=== PATIENT | female | born 1950 | race Caucasian/White ===

== ENCOUNTER 2016-08-30 10:22 | Outpatient (CLI) ==
[2014-08-18 18:42] VITALS: BMI 24.4
[2016-08-30 13:42] LABS: CHOL/HDL RATIO 6.2 (4.5-5.5)
== END 2016-08-30 10:23 | disposition home or self-care (01) ==
LOC: LAB 10:22
PROVIDERS: ATTEND General Practice
DX: E16.1 Other hypoglycemia (principal); E55.9 Vitamin D deficiency, unspecified; E78.5 Hyperlipidemia, unspecified
CPT/HCPCS: 36415; 80061; 82306

== ENCOUNTER 2016-11-29 10:10 | Outpatient (CLI) ==
[2014-08-18 18:42] VITALS: BMI 24.4
[2016-11-29 12:57] LABS: BASOPHILS % (AUTO) 0.3 % (0.0-3.0); EOSINOPHILS # (AUTO) 0.1 K/ul (0.0-0.7); HEMATOCRIT 42.1 % (37.0-47.0); HEMOGLOBIN 14.7 g/dl (12.0-16.0); IMMATURE GRANULOCYTE % (AUTO) 0.4 % (0.0-5.0); LYMPHOCYTES # (AUTO) 2.2 K/uL (0.60-3.4); LYMPHOCYTES % (AUTO) 32.8 (10.0-50.0); MEAN CORPUSCULAR HEMOGLOBIN 31.2 pg (27.0-31.0); MEAN CORPUSCULAR HGB CONC 34.9 (31.8-35.4); MEAN CORPUSCULAR VOLUME 89.4 fl (81.0-99.0); MONOCYTES # (AUTO) 0.5 K/uL (0.4-2.0); NEUTROPHILS # (AUTO) 3.9 K/ul (2.0-6.9); NEUTROPHILS % (AUTO) 58.5; PLATELET COUNT 305 10^3/uL (140-440); RED BLOOD COUNT 4.71 10^6/ul (4.20-5.40); WHITE BLOOD COUNT 6.71 K/ul (4.6-10.2)
[2016-11-29 13:00] LABS: BILIRUBIN,URINE Negative (NEGATIVE); KETONES,URINE Negative (NEGATIVE); LEUKOCYTE ESTERASE ,URINE 1+ (NEGATIVE); NITRITE,URINE Negative (NEGATIVE); PROTEIN,URINE Negative (NEGATIVE); URINE, BLOOD Negative (NEGATIVE)
[2016-11-29 13:09] LABS: ADD URINE MICROSCOPIC YES
[2016-11-29 13:44] LABS: ALBUMIN/GLOBULIN RATIO 1.21; ANION GAP 13.6; BILIRUBIN,TOTAL 0.51 mg/dL (0.00-1.20); BUN/CREATININE RATIO 14.86; CALCIUM 9.5 mg/dL (8.2-10.2); CHOL/HDL RATIO 5.9 (4.5-5.5); CREATININE 0.74 mg/dL (0.60-1.30); POTASSIUM 3.6 mmol/L (3.5-5.10); TOTAL PROTEIN 7.3 g/dL (5.8-8.1)
== END 2016-11-29 10:11 | disposition home or self-care (01) ==
LOC: LAB 10:10
PROVIDERS: ATTEND General Practice
DX: E78.5 Hyperlipidemia, unspecified (principal); I10 Essential (primary) hypertension; E55.9 Vitamin D deficiency, unspecified; E16.1 Other hypoglycemia; M54.5 Low back pain; Z79.899 Other long term (current) drug therapy
CPT/HCPCS: 36415; 80053; 80061; 81001; 82306; 83036; 85025

== ENCOUNTER 2017-07-17 13:18 | Outpatient (CLI) ==
[2014-08-18 18:42] VITALS: BMI 24.4
[2017-07-17 13:43] LABS: BASOPHILS % (AUTO) 0.3 % (0.0-3.0); EOSINOPHILS # (AUTO) 0.1 K/ul (0.0-0.7); HEMATOCRIT 42.3 % (37.0-47.0); HEMOGLOBIN 14.8 g/dl (12.0-16.0); IMMATURE GRANULOCYTE % (AUTO) 0.3 % (0.0-5.0); LYMPHOCYTES # (AUTO) 1.8 K/uL (0.60-3.4); LYMPHOCYTES % (AUTO) 29.8 (10.0-50.0); MEAN CORPUSCULAR HEMOGLOBIN 31.2 pg (27.0-31.0); MEAN CORPUSCULAR VOLUME 89.1 fl (81.0-99.0); MONOCYTES # (AUTO) 0.4 K/uL (0.4-2.0); MONOCYTES % (AUTO) 6.5 (0-10); NEUTROPHILS # (AUTO) 3.8 K/ul (2.0-6.9); NEUTROPHILS % (AUTO) 62.1; PLATELET COUNT 285 10^3/uL (140-440); RED BLOOD COUNT 4.75 10^6/ul (4.20-5.40); WHITE BLOOD COUNT 6.11 K/ul (4.6-10.2)
[2017-07-17 13:49] LABS: BILIRUBIN,URINE Negative (NEGATIVE); KETONES,URINE Negative (NEGATIVE); LEUKOCYTE ESTERASE ,URINE 2+ (NEGATIVE); NITRITE,URINE Negative (NEGATIVE); PROTEIN,URINE Negative (NEGATIVE); URINE, BLOOD Trace-intact (NEGATIVE)
[2017-07-17 14:08] LABS: ADD URINE MICROSCOPIC YES
[2017-07-17 14:13] LABS: BACTERIA,URINE TRACE (NOT PRESENT)
[2017-07-17 14:35] LABS: ALBUMIN 3.9 g/dL (3.4-5.0); ALBUMIN/GLOBULIN RATIO 1.11; ANION GAP 14.7; BILIRUBIN,TOTAL 0.43 mg/dL (0.00-1.20); BUN/CREATININE RATIO 17.33; CALCIUM 9.9 mg/dL (8.2-10.2); CHOL/HDL RATIO 5.8 (4.5-5.5); CREATININE 0.75 mg/dL (0.60-1.30); POTASSIUM 3.7 mmol/L (3.5-5.10); TOTAL PROTEIN 7.4 g/dL (5.8-8.1)
== END 2017-07-17 13:19 | disposition home or self-care (01) ==
LOC: LAB 13:18
PROVIDERS: ATTEND General Practice
DX: E78.5 Hyperlipidemia, unspecified (principal); I10 Essential (primary) hypertension; M54.5 Low back pain; G89.29 Other chronic pain; M96.1 Postlaminectomy syndrome, not elsewhere classified; E55.9 Vitamin D deficiency, unspecified; M81.0 Age-related osteoporosis without current pathological fracture; E16.1 Other hypoglycemia; G47.00 Insomnia, unspecified; Z72.0 Tobacco use; Z79.899 Other long term (current) drug therapy
CPT/HCPCS: 36415; 80053; 80061; 81001; 82306; 83036; 84443; 85025; 87086

== ENCOUNTER 2017-08-23 09:31 | Outpatient (CLI) ==
[2014-08-18 18:42] VITALS: BMI 24.4
--- NOTE | 2017-08-23 10:14 | CT ---
EXAM: CT cervical spine. HISTORY: Neck pain. TECHNIQUE: CT cervical spine without contrast. Detailed axial sections. Coronal and sagittal re-fo rmations. COMPARISON: None FINDINGS: Stabilization hardware of the anterior cervical spine is present which appears to extend from C2 thro ugh C7. There appears to be loss of height at C3 with an intervening disc spacer between C3 and C4. Hardware appears intact without gross fracture. There is no spondylolisthes. Bones appear relative ly demineralized. No acute fracture is obvious. Partial decompressive laminectomy has occurred. Fa cet joints are covered. No scoliosis. Lateral masses of C1 and C2 are normally aligned and the odo ntoid process is intact. No definite significant central canal stenosis. Neural foraminal narrowing bilaterally at C3/C4 is moderate. No paraspinal fluid collection is seen. IMPRESSION: Extensive postop changes of the cervical spine as described which can be reviewed by the patient's surgeon for appropriateness. There is no acute fracture or subluxation. No significant c entral canal stenosis is suggested. Some loss of height at C2. Probable moderate bilateral neural f oraminal narrowing at C3/C4.
== END 2017-08-23 09:32 | disposition home or self-care (01) ==
LOC: RAD 09:31
PROVIDERS: ATTEND Orthopaedic Surgery Orthopaedic Surgery of the Spine
DX: M54.2 Cervicalgia (principal)

== ENCOUNTER 2018-03-12 09:50 | Outpatient (CLI) ==
[2014-08-18 18:42] VITALS: BMI 24.4
== END 2018-03-12 09:51 ==
LOC: FCC-LAB 09:50 → LAB 09:51
PROVIDERS: ATTEND General Practice
DX: E78.5 Hyperlipidemia, unspecified (principal); I10 Essential (primary) hypertension; E55.9 Vitamin D deficiency, unspecified; M81.0 Age-related osteoporosis without current pathological fracture; G47.00 Insomnia, unspecified; K21.9 Gastro-esophageal reflux disease without esophagitis; Z79.899 Other long term (current) drug therapy
CPT/HCPCS: 36415; 80053; 80061; 81001; 85025

== ENCOUNTER 2018-03-13 10:23 | Outpatient (CLI) ==
[2014-08-18 18:42] VITALS: BMI 24.4
--- NOTE | 2018-03-13 11:53 | CT ---
EXAM: CT of the abdomen pelvis without contrast History: Left lower quadrant abdominal pain. Comparison: Abdominal ultrasound 10/22/2015 Technique: Multiplanar CT images through the abdomen pelvis were obtained without the administration of IV contrast Findings: Lung bases are free of consolidation. No acute osseous abnormalities. Right hip arthropla sty hardware. Postsurgical changes of the lumbar spine and bilateral sacroiliac joints. 3.9 cm inci dental lipoma of the left lateral abdominal wall musculature. Status post cholecystectomy. No focal liver or splenic lesions. No peripancreatic inflammation. At herosclerotic vascular calcifications. Adrenal glands are unremarkable. No renal stones and no hydr onephrosis. Evaluation of the renal parenchyma is limited due to the lack of contrast administration . The 1.4 cm hypoattenuating lesion within the superior pole of the left kidney and the 1.1 cm hypoa ttenuating lesion within the midpole of the left kidney. 1.1 cm hypoattenuating lesion within the bryson perior pole of the right kidney. No dilated loops of bowel. Moderate colonic stool. Colonic divert iculosis. Bladder is not well distended. No focal bladder wall thickening. No perirectal inflammat ion. No free air and no ascites. No jose inflammatory stranding. The appendix is not seen. Impression: 1. No acute intra-abdominal or pelvic process. 2. Indeterminate bilateral renal cortical lesions. Recommend further evaluation with renal ultrasou nd. 3. Colonic diverticulosis.
== END 2018-03-13 10:24 | disposition home or self-care (01) ==
LOC: RAD 10:23
PROVIDERS: ATTEND General Practice
DX: R10.32 Left lower quadrant pain (principal)

== ENCOUNTER 2018-03-20 08:16 | Outpatient (CLI) | payer OTHER ==
[2014-08-18 18:42] VITALS: BMI 24.4
--- NOTE | 2018-03-20 09:03 | US ---
EXAM: Renal ultrasound. History: Renal masses. Comparison: CT abdomen pelvis 03/13/2018 Technique: Multiple sonographic images through the kidneys were obtained. Color duplex Doppler was used to interrogate vascular flow. Findings: The right kidney measures 10.7 cm in long length demonstrating normal cortical echogenicity without e vidence for hydronephrosis or shadowing calculus. 1.2 cm anechoic simple cyst within the superior po le. The left kidney measures 9.8 cm in long length demonstrating normal cortical echogenicity without zaira dence for hydronephrosis or shadowing calculus. 1.3 cm anechoic cyst within the superior pole and 1. 4 cm anechoic cyst within the superior pole. The bladder was not well distended. Impression: 1. No hydronephrosis. 2. Simple bilateral renal cysts
== END 2018-03-20 08:17 | disposition home or self-care (01) ==
LOC: RAD 08:16
PROVIDERS: ATTEND General Practice
DX: R93.8 Abnormal findings on diagnostic imaging of other specified body structures (principal); N28.9 Disorder of kidney and ureter, unspecified

== ENCOUNTER 2018-12-13 15:24 | Inpatient (IN) ==
[2018-12-13 15:29] VITALS: BMI 25.2
[2018-12-13] MEDS ORDERED: PHENERGAN 25 MG/ML VIAL IM STA (15:56)
[2018-12-13] MEDS ORDERED: PHENERGAN 25 MG/ML VIAL 25 MG in SODIUM CHLORIDE 50 ML IV STA (16:12)
[2018-12-13] MEDS ORDERED: PHENERGAN 25 MG/ML VIAL ONE (16:14)
--- NOTE | 2018-12-13 18:02 | CT ---
EXAM: CT of the abdomen and pelvis without contrast. HISTORY: Pain. Positive urinary source. PROCEDURE: Contiguous axial CT images of the abdomen and pelvis without contrast with coronal and sa gittal reformats. FINDINGS: There is minimal left basilar atelectasis. The liver is normal in appearance. The gallbla dder is surgically absent. The pancreas, spleen and adrenal glands are normal in appearance. There are fluid density cysts in both kidneys. No nephrolithiasis or hydronephrosis. The ureters are inco mpletely visualized. The abdominal aorta is within normal limits in diameter. There are atheroscler otic calcifications in the major arteries of the abdomen and pelvis. The appendix is not visualized. There is fecal stasis in the ascending and proximal transverse colon which measures up to 4.9 cm in diameter. There is a moderate amount of air in the colon. No bowel obstruction. There is divertic ulosis of the colon with no evidence of diverticulitis. No free fluid or free air in the abdomen or pelvis. The bladder is decompressed which limits the evaluation. The uterus is surgically absent. There is a right hip arthroplasty and surgical hardware in the pelvis and spine with associated artif act which limits the exam. There are degenerative changes in the spine. There is a dorsal column st imulator. There is a hernia in the left lateral abdominal wall measuring 3.3 x 3.7 cm containing onl y fat. Impression: Decompressed bladder which limits the evaluation. Bladder wall thickening/cystitis canno t be excluded. Recommend correlation with urinary analysis. No hydronephrosis. The ureters are incompletely visualized. Simple bilateral renal cysts. Fecal stasis in the colon as described consistent with constipation. Abdominal wall hernia as described Cholecystectomy. Hysterectomy.
[2018-12-13] MEDS ORDERED: ROCEPHIN 1 GM in SODIUM CHLORIDE 50 ML IV STA (18:11)
--- NOTE | 2018-12-13 18:13 | ED.PDOC ---
General ED Provider: Dr. LOURDES EPSTEIN Chief Complaint: Urinary Problem Stated Complaint: URNARY SYMP, FLANK PAIN, FEVER , BACK PAIN Time Seen by Physician: 15:30 Mode of Arrival: Walk-In Information Source: Patient Exam Limitations: No limitations Primary Care Provider: MELVIN JESSICANEW [facility] Nursing and Triage Documentation Reviewed and Agree: Yes Does patient meet sepsis criteria?: No System Inflammatory Response Syndrome: Not Applicable Sepsis Protocol: For patient's 13 years and over: Temp is 96.8 and below OR 101 and greater Pulse >90 BPM Resp >20/minute Acutely Altered Mental Status Are patient's symptoms suggestive of a new infection, such as: -Pneumonia -Skin, Soft Tissue -Endocarditis -UTI -Bone, Joint Infection -Implantable Device -Acute Abdominal Infection -Wound Infection -Meningitis -Blood Stream Catheter Infection -Unknown Complaint Exam - Complaint/Exam Patient Complains of: Reports: Pain, Dysuria Onset/Duration: 1 DAY Symptoms Are: Still present Timing: Constant Episodes of Voiding Over Last 12 Hours: 4 Initial Severity: Moderate Current Severity: Moderate Location of Pain: Reports: Right, Flank, Suprapubic Character: Reports: Constant pressure, Cramping Aggravating: Reports: Urination Alleviating: Reports: None Associated Signs and Symptoms: Reports: Back pain, Fever, Dysuria, Nausea. Denies: Diaphoresis, Hematuria, Constipation, Blood in stool, Rectal pain, Appetite change, Vomiting, Decreased urine output, Increased urine frequency, Increased thirst, Decreased activity, Lethargy, Abdominal Pain, Bubble bath use , Vaginal bleeding, Vaginal discharge, Genital swelling, Genital blisters, Retained foreign body Ectopic Risk Factors: Reports: None Ovarian Torsion Risk Factors: Reports: None Surgical Obstruction Risk Factors: Reports: None RH Status: Unknown Related Surgical History: Reports: None Differential Diagnoses: UTI Review of Systems - Review Of Systems Constitutional: Reports: Fever, Malaise, Weakness, Loss of appetite Eyes: Reports: No symptoms Ears, Nose, Mouth, Throat: Reports: No symptoms Respiratory: Reports: No symptoms Cardiac: Reports: No symptoms GI: Reports: Abdomen distended : Reports: Dysuria, Flank pain Musculoskeletal: Reports: Back pain Skin: Reports: No symptoms Neurological: Reports: No symptoms Endocrine: Reports: No symptoms Hematologic/Lymphatic: Reports: No symptoms All Other Systems: Reviewed and Negative Past Medical History - Past Medical History Previously Healthy: Yes Endocrine: Reports: None Cardiovascular: Reports: Hypertension Respiratory: Reports: None Hematological: Reports: None Gastrointestinal: Reports: GERD Genitourinary: Reports: None Neuro/Psych: Reports: None Musculoskeletal: Reports: None Cancer: Reports: None Last Menstrual Period: N/A - Surgical History General Surgical History: Reports: None - Family History Family History: Reports: None - Social History Smoking Status: Current every day smoker Hx Substance Use: No Alcohol Screening: None Physical Exam - Physical Exam Appearance: Ill-appearing Ill-appearing: Mild Pain Distress: Mild Eyes: NAM, EOMI, Conjunctiva clear ENT: Ears normal, Nose normal, Oropharynx normal Respiratory: Airway patent, Breath sounds clear, Breath sounds equal, Respirations nonlabored Cardiovascular: RRR, Pulses normal, No rub, No murmur GI/: Soft, Nontender, No masses, Bowel sounds normal, No Organomegaly Musculoskeletal: Normal strength, ROM intact, No edema, No calf tenderness Skin: Warm, Dry, Normal color Neurological: Sensation intact, Motor intact, Reflexes intact, Cranial nerves intact, Alert, Oriented Psychiatric: Affect appropriate, Mood appropriate Interpretation - Radiology Interpretation Radiology Interpretation By: Radiologist Radiology Results: Positive (CYSTITIS) Physician Notification - Case Discussed Physician Notified: PMD Time of Notification: 18:13 Critical Care Note - Critical Care Note Total Time (mins): 0 Course - Course Hematology/Chemistry: 12/13/18 16:00 12/13/18 16:00 Orders, Labs, Meds: Lab Review 12/13/18 12/13/18 12/13/18 15:50 16:00 16:00 WBC 14.82 H RBC 4.17 L Hgb 13.2 Hct 37.3 MCV 89.4 MCH 31.7 H MCHC 35.4 RDW Coeff of Wendi 12.9 Plt Count 274 Immature Gran % (Auto) 0.6 Neut % (Auto) 93.0 Lymph % (Auto) 4.3 L [place] % (Auto) 2.0 Eos % (Auto) 0.0 Baso % (Auto) 0.1 Immature Gran # (Auto) 0.1 Neut # (Auto) 13.8 H Lymph # (Auto) 0.6 [place] # (Auto) 0.3 L Eos # (Auto) 0.0 Baso # (Auto) 0.0 Sodium 130.8 L Potassium 3.46 L Chloride 96.6 L Carbon Dioxide 25.8 Anion Gap 11.86 BUN 13.2 Creatinine 0.83 Estimated GFR (MDRD) 69.00 BUN/Creatinine Ratio 15.90 Glucose 99.1 Lactic Acid Calcium 8.94 Total Bilirubin 0.80 AST 181.8 H ALT 78.0 H Alkaline Phosphatase 48.4 L Total Protein 6.44 Albumin 4.30 Globulin 2.14 Albumin/Globulin Ratio 2.00 Amylase 53.1 Lipase 19.0 L Urine Color [place] Urine Clarity Clear Urine pH 5.0 Ur Specific [place] 1.015 Urine Protein 3+ Urine Glucose (UA) 1+ Urine Ketones 1+ Urine Blood 2+ Urine Nitrite Positive Urine Bilirubin 2+ Urine Urobilinogen 4.0 Ur Leukocyte Esterase 3+ Urine Microscopic RBC 5-10 Urine Microscopic WBC 50-100 Ur Squamous Epith Cells Not present Urine Bacteria 1+ 12/13/18 16:00 WBC RBC Hgb Hct MCV MCH MCHC RDW Coeff of Wendi Plt Count Immature Gran % (Auto) Neut % (Auto) Lymph % (Auto) [place] % (Auto) Eos % (Auto) Baso % (Auto) Immature Gran # (Auto) Neut # (Auto) Lymph # (Auto) [place] # (Auto) Eos # (Auto) Baso # (Auto) Sodium Potassium Chloride Carbon Dioxide Anion Gap BUN Creatinine Estimated GFR (MDRD) BUN/Creatinine Ratio Glucose Lactic Acid 1.52 Calcium Total Bilirubin AST ALT Alkaline Phosphatase Total Protein Albumin Globulin Albumin/Globulin Ratio Amylase Lipase Urine Color Urine Clarity Urine pH Ur Specific [place] Urine Protein Urine Glucose (UA) Urine Ketones Urine Blood Urine Nitrite Urine Bilirubin Urine Urobilinogen Ur Leukocyte Esterase Urine Microscopic RBC Urine Microscopic WBC Ur Squamous Epith Cells Urine Bacteria Orders Category Date Time Status EKG-(ED ONLY) Stat CARDIO 12/13/18 15:34 Completed NPO REMINDER: IMAGING ONCE CARE 12/13/18 17:02 Active ABG Stat LAB 12/13/18 15:34 Ordered AMYLASE Stat LAB 12/13/18 16:00 Completed BLOOD CULTURE Stat LAB 12/13/18 16:33 Received CBC W/ AUTO DIFF Stat LAB 12/13/18 16:00 Completed COMPREHENSIVE METABOLIC PANEL Stat LAB 12/13/18 16:00 Completed LACTIC ACID Stat LAB 12/13/18 16:00 Completed LIPASE Stat LAB 12/13/18 16:00 Completed PROCALCITONIN Stat LAB 12/13/18 16:00 Received URINALYSIS C & S IF INDICATED Stat LAB 12/13/18 15:50 Completed URINE CULTURE Stat LAB 12/13/18 05:50 Received Ceftriaxone Sodium [Rocephin] 1 gm MEDS 12/13/18 18:11 Ordered 0.9 % Sodium Chloride [Sodium Chloride] 50 ml IV ONCE Promethazine HCl [Phenergan 25 mg/ml Vial] MEDS 12/13/18 16:14 Discontinued 25 mg .ROUTE .STK-MED ONE Promethazine HCl [Phenergan 25 mg/ml Vial] 25 mg MEDS 12/13/18 16:12 Discontinued 0.9 % Sodium Chloride [Sodium Chloride] [address] ABDOMEN/PELVIS WO CONTRAST Stat RADS 12/13/18 17:01 Completed Medications Discontinued Medications Generic Name Dose Route Start Last Admin Trade Name Freq PRN Reason Stop Dose Admin Promethazine HCl 25 mg/ Sodium 51 mls @ 75 mls/hr 12/13/18 16:12 12/13/18 16: 23 Chloride IV 12/13/18 16:52 75 mls/hr ONCE STA Administration Vital Signs: Temp Pulse Resp BP Pulse Ox 12/13/18 15:25 101 F H 110 H 20 92/49 L 93 L Departure - Departure Time of Disposition: 18:14 (PT REFUSED CONTRAST STATED 207EARS AGO HAD ALLERGY TO IV DYE ) Disposition: ADMITTED INPATIENT Discharge Problem: Urinary tract infectious disease Instructions: Urinary Tract Infection in Women (ED) Condition: Good Pt referred to PMD for follow-up: Yes IPMP verified?: No Additional Instructions: Please call your Family Physician as soon as possible to schedule a follow-up appointment. Allergies/Adverse Reactions: Allergies ciprofloxacin Adverse Reaction (Verified 12/13/18 16:03) Iodinated Contrast- Oral and IV Dye Adverse Reaction (Unverified 12/13/18 17:39) NSAIDS (Non-Steroidal Anti-Inflamma Adverse Reaction (Verified 12/13/18 16:03) olmesartan Adverse Reaction (Verified 12/13/18 16:03) prochlorperazine Adverse Reaction (Verified 12/13/18 16:03) sulfamethoxazole [From Bactrim] Adverse Reaction (Verified 12/13/18 16:03) trimethoprim [From Bactrim] Adverse Reaction (Verified 12/13/18 16:03) Home Medications: Ambulatory Orders Alprazolam 0.5 mg PO DAILY PRN 08/18/14 Fluticasone Propionate [Flonase] 2 spray NS DAILY PRN 08/18/14 Olmesartan/Hydrochlorothiazide [Benicar Hct 20-12.5 mg Tablet] 1 each PO DAILY 08/18/14 Carisoprodol [Soma] 350 mg PO TID PRN 10/21/15 Oxycodone HCl 10 mg PO 6XD tab-cap 12/10/15 Vitamin B-100 Complex [Balanced B-100] 1 tab PO DAILY 12/13/18
[2018-12-13] MEDS ORDERED: ROCEPHIN ONE (18:23)
[2018-12-13] MEDS ORDERED: NON-FORMULARY MEDICATION (Zolpidem Tartrate [Ambien] 10 MG) PO SCH ×2 (18:45→22:00)
[2018-12-13] MEDS ORDERED: SODIUM CHLORIDE 1,000 ML IV SCH (19:00)
[2018-12-13] MEDS ORDERED: NON-FORMULARY MEDICATION (Oxycodone Hcl [Oxycodone Hcl] 10 MG) PO SCH (21:00)
[2018-12-13] MEDS ORDERED: PHENERGAN SUPP RC PRN (21:21)
[2018-12-13] MEDS ORDERED: GENTAMICIN SULFATE ONE (21:27)
[2018-12-13] MEDS: DEXTROSE 5%-LR IV SOLUTION 1,000 ML IV SCH (21:37)
[2018-12-13] MEDS: GENTAMICIN SULFATE 80 MG in SODIUM CHLORIDE 50 ML IV SCH ×2 (21:38→22:06)
[2018-12-13] MEDS ORDERED: OXYCODONE ONE (21:49)
[2018-12-13] MEDS ORDERED: AMBIEN ONE (21:49)
[2018-12-13] MEDS ORDERED: OXYCODONE PO STA (22:01)
[2018-12-13] MEDS: AMBIEN PO SCH (22:03)
[2018-12-14] MEDS: OXYCODONE PO SCH ×6 (05:00→21:41)
[2018-12-14] MEDS: XANAX PO PRN ×2 (06:19→20:55)
[2018-12-14] MEDS: HYDROCHLOROTHIAZIDE PO SCH (08:10)
[2018-12-14] MEDS: BENICAR PO SCH (08:10)
[2018-12-14] MEDS ORDERED: OLMESARTAN PO SCH ×2 (09:00)
[2018-12-14] MEDS ORDERED: HYDROCHLOROTHIAZIDE PO SCH ×2 (09:00)
[2018-12-14] MEDS ORDERED: [UNRECOGNIZED DRUG - OTHER] PO SCH ×2 (09:00)
[2018-12-14] MEDS: DEXTROSE 5%-LR IV SOLUTION 1,000 ML IV SCH (09:26)
[2018-12-14] MEDS: GENTAMICIN SULFATE 80 MG in SODIUM CHLORIDE 50 ML IV SCH ×2 (09:26→20:55)
[2018-12-14] MEDS ORDERED: DEXTROSE 5%-LR IV SOLUTION 1,000 ML IV SCH (11:30)
[2018-12-14] MEDS: NICODERM 21 MG TD SCH (12:34)
[2018-12-14] MEDS: SOMA PO PRN (14:14)
--- NOTE | 2018-12-14 14:35 | HP ---
DATE OF SERVICE: 12/13/18 CHIEF COMPLAINT: Fever, nausea, pelvic pain, and burning with urination. HISTORY OF PRESENT ILLNESS: The patient is a 68-year-old patient who presented to the Emergency Department after one week of symptoms. The symptoms initially started approximately one week ago with just not feeling well. She had developed some fever, some chills, nausea, burning with urination and started a leftover prescription of Augmentin 875 mg once daily on Monday, Monday and Monday. On Monday she started feeling pretty good and then by Monday she started feeling worse again. On the chills, fever and nausea got worse and that is when she decided to present to the Emergency Department. On admission to the Emergency Department, her fever was 101, tachycardic at 110. Her white count was 14,000. She had hematuria with nitrites in her urine as well as leukocytes. While in the emergency department, urine cultures were obtained as well as blood cultures, labs and the patient was started on IV Rocephin, given IV nausea medicine and CT scan of the abdomen and pelvis was completed. The CT scan of the abdomen and pelvis revealed bladder wall thickening as well as cystitis could not be excluded. Due to the high fever, abnormal CT scan of the abdomen and pelvis and concerns for bacteremia, the patient was admitted for IV antibiotic therapy, IV fluids and monitoring. PAST PERSONAL HISTORY: The patient was diagnosed with rheumatoid arthritis and treated previously with Methotrexate. She also has a history of lumbar surgery, failed back surgery syndrome, hypertension,, headaches, migraine as well as bilateral hip pain and right total hip replacement. Also has a history of chronic neck pain persistent after surgery, fibromyalgia, questionable, insomnia on medication, gastroesophageal reflux disease, moderate dyslipidemia plus anxiety. FAMILY HISTORY: Positive for diabetes, heart attack, heart disease, spinal problems and cancer. SOCIAL HISTORY: The patient is and resides with her with grown children no longer at home. She smokes two packs of cigarettes a day although less now. She has smoked for years. Occasional alcoholic beverages. MEDICATIONS: (HOME) Flonase two sprays per nostril daily p.r.n. Alprazolam 0.5 mg daily p.r.n. Soma 350 mg tablet three times a day p.r.n. Oxycodone HCL 10 mg tablet six times a day p.r.n. Butalb/acetaminophen/caffeine 50/325/40 one tablet daily p.r.n. Ambien 10 mg nightly as needed for insomnia Olmesartan/HCTZ 20/12.5 mg tablet one daily for blood pressure Omeprazole 20 mg tablet daily p.r.n. reflux Vitamin D3 50,000 units once monthly Vitamin B complex one tablet daily ALLERGIES: CELEBREX, BIAXIN, COMPAZINE, LIPITOR, PRAVACHOL, BACTRIM, ACIFEX, IVP DYE, NONSTEROIDAL AND OTHER ANTIINFLAMMATORY MEDICATIONS, METHOTREXATE, NIASPAN, VYTOREN, CRESTOR, CYMBALTA, AND CIPROFLOXACIN REVIEW OF SYSTEMS: CONSTITUTIONAL: She did have chills as well as fever on admission. No significant fatigue reported. PARLIAMENTARY COUNSEL: She does have a history of headaches, migraine in nature; did not have any headache on admission. No reports of dizziness or ataxia. AUDITORY: No significant hearing loss. RESPIRATORY: The patient has a chronic cough most likely due to smoking. CARDIOVASCULAR: No reports of chest pain, palpitations or shortness of breath. No lower extremity edema. GASTROINTESTINAL: She did have nausea on admission. No reports of constipation, diarrhea or blood in the stool. GENITOURINARY: Positive for dysuria, pelvic pain. MUSCULOSKELETAL: She does have pain in her neck and lumbar area as well as hips. This is chronic in nature. ENDOCRINE: Negative. INTEGUMENT: No rash or pruritus. HEMATOLOGIC: Negative. PSYCHIATRIC: She does have history of insomnia plus anxiety. PHYSICAL EXAMINATION: GENERAL: The patient is a 64-year-old female admitted to the hospital due to urinary tract infection, rule out probable bacteremia. She has been experiencing symptoms for the last one week with related symptoms of nausea, fever and chills. The symptoms have progressed and gotten worse even after taking an antibiotic at home. VITAL SIGNS: On admission include a temperature of 101, pulse rate of 110, blood pressure of 92/49, respiratory rate of 20 and 02 sat of 93. This is on room air. Height 5', weight 129 lbs. HEAD: Unremarkable. Face symmetrical and equal with no facial weakness, no tenderness in the frontal or maxillary sinus areas to palpation and/or pressure. EYES: Pupils equal/reactive to light and 3 mn in size. Conjunctivae not pale. Sclerae not icteric. Extraocular movements are intact. EARS: External ears within normal limits. MOUTH: Dentures both upper and lower. THROAT: No inflammation, no tumors, no exudate. NECK: No masses. No bruit. No tenderness. The patient had surgeries to the neck involving C6 to C7 done in [place], [place]. CHEST: Symmetrical and equal with good expansion. No remarkable tenderness. LUNGS: Breath sounds are heard on both sides. No rales. No wheeze. HEART: Audible and regular with good tones. No murmurs. ABDOMEN: Flat, soft. She does have positive lower abdominal pelvic tenderness. Bowel sounds are active. No bruit. EXTERNAL GENITALIA: Pelvic and rectal not completed. LOWER EXTREMITIES: Essentially symmetrical and equal with no edema. Pedal pulses are present. UPPER EXTREMITIES: Symmetrical and equal. ASSESSMENT: 1. URINARY TRACT INFECTION WITH PROBABLE BACTEREMIA 2. FEVER 3. MILD DEHYDRATION 4. ELEVATED LIVER FUNCTION TEST 5. NAUSEA 6. FAILED BACK SURGERY SYNDROME, LUMBAR 7. DEGENERATIVE JOINT DISEASE 8. RIGHT TOTAL HIP REPLACEMENT 9. CHRONIC KNEE PAIN STATUS POST SURGERY 10. CHRONIC TOBACCO USE, TWO PACKS PER DAY PERSISTENT 11. HISTORY OF FIBROMYALGIA 12. HISTORY OF RHEUMATOID ARTHRITIS, SEEN BY [facility], DR. MARSHALL 13. HISTORY OF INSOMNIA ON AMBIEN 14. HISTORY OF GASTROESOPHAGEAL REFLUX DISEASE ON MEDICATION 15. ANXIETY PLAN: 1. Continue IV antibiotics and adjust accordingly with cultures. Currently the cultures are pending. We are awaiting results. 2. Change IV fluids to D5 1/2 NS with 20 mEq of potassium with MVI at 125 cc/ hr during waking hours only and stop at night. 3. We are going to order hepatitis panel due to elevated liver function test. 4. We will repeat a procalcitonin level today to followup the elevated procalcitonin level on admission. 5. We will resume home medications and follow vital signs including temperature. TIME SPENT: GREATER THAN 65 MINUTES MTDD
[2018-12-14] MEDS ORDERED: GENTAMICIN SULFATE ONE (20:16)
[2018-12-14] MEDS: AMBIEN PO SCH (21:41)
[2018-12-14] MEDS ORDERED: COLACE PO PRN (22:08)
[2018-12-15] MEDS ORDERED: INFUVITE ADULT IV ONE ×2 (05:22→17:26)
[2018-12-15] MEDS: INFUVITE ADULT 10 ML in D5%-1/2NS-KCL 20 MEQ/L IV SOL 1,000 ML IV SCH ×2 (05:32→17:30)
[2018-12-15] MEDS: OXYCODONE PO SCH ×6 (05:33→21:05)
[2018-12-15] MEDS: GENTAMICIN SULFATE 80 MG in SODIUM CHLORIDE 50 ML IV SCH ×2 (09:07→21:05)
[2018-12-15] MEDS: NICODERM 21 MG TD SCH (09:07)
[2018-12-15] MEDS: FLUTICASONE PROPIONATE NS PRN (09:08)
[2018-12-15] MEDS: HYDROCHLOROTHIAZIDE PO SCH (09:09)
[2018-12-15] MEDS: BENICAR PO SCH (09:09)
[2018-12-15] MEDS: XANAX PO PRN (11:30)
[2018-12-15] MEDS: SOMA PO PRN ×2 (11:35→17:47)
[2018-12-15] MEDS: AMBIEN PO SCH (21:05)
[2018-12-16] MEDS ORDERED: INFUVITE ADULT IV ONE ×2 (04:43→14:46)
[2018-12-16] MEDS: INFUVITE ADULT 10 ML in D5%-1/2NS-KCL 20 MEQ/L IV SOL 1,000 ML IV SCH ×3 (05:45→15:06)
[2018-12-16] MEDS: OXYCODONE PO SCH ×6 (05:45→21:01)
[2018-12-16] MEDS: BENICAR PO SCH (08:01)
[2018-12-16] MEDS: SOMA PO PRN (08:01)
[2018-12-16] MEDS: HYDROCHLOROTHIAZIDE PO SCH (08:01)
[2018-12-16] MEDS: NICODERM 21 MG TD SCH (08:07)
[2018-12-16] MEDS ORDERED: FIORICET PO STA (08:15)
[2018-12-16] MEDS: GENTAMICIN SULFATE 80 MG in SODIUM CHLORIDE 50 ML IV SCH (08:37)
[2018-12-16] MEDS ORDERED: FIORICET PO PRN (13:37)
[2018-12-16] MEDS: XANAX PO PRN (14:06)
[2018-12-16] MEDS: AMBIEN PO SCH (21:01)
[2018-12-17] MEDS ORDERED: FIORICET PO STA ×2 (00:27→08:38)
[2018-12-17 04:33] VITALS: BP 130/69; TEMP 98.4
[2018-12-17] MEDS ORDERED: INFUVITE ADULT IV ONE (05:29)
[2018-12-17] MEDS: INFUVITE ADULT 10 ML in D5%-1/2NS-KCL 20 MEQ/L IV SOL 1,000 ML IV SCH ×2 (05:45→14:24)
[2018-12-17] MEDS: OXYCODONE PO SCH ×4 (05:45→14:27)
[2018-12-17] MEDS: BENICAR PO SCH (08:07)
[2018-12-17] MEDS: FLUTICASONE PROPIONATE NS PRN (08:07)
[2018-12-17] MEDS: SOMA PO PRN ×2 (08:07→14:27)
[2018-12-17] MEDS: HYDROCHLOROTHIAZIDE PO SCH (08:07)
[2018-12-17] MEDS: NICODERM 21 MG TD SCH (08:08)
[2018-12-17] MEDS ORDERED: GENTAMICIN SULFATE ONE (08:43)
[2018-12-17] MEDS ORDERED: MACROBID PO SCH (09:00)
[2018-12-17] MEDS ORDERED: GENTAMICIN SULFATE 80 MG in SODIUM CHLORIDE 50 ML IV SCH ×2 (09:00→15:00)
--- NOTE | 2018-12-17 09:51 | PCM.CONS ---
CONSULTING PROVIDER: Dr. ROSY MAR ATTENDING PROVIDER: Dr. MELVIN [facility] DATE OF SERVICE: 12/17/18 SUBJECTIVE: This 68 year old WHITE/ F was hospitalized 12/13/18. The patient is resting comfortably in bed. She had fever last night and is refusing to stay past 5 p.m. today. Will resume Gentamicin with two IV doses prior to 5 p.m. She has been eating well, no nausea or vomiting. REVIEW OF SYSTEMS: CONSTITUTIONAL: Fever. No night sweats. No fatigue, malaise, lethargy. No chills. HEENT: Eyes: No visual changes. No eye pain. No eye discharge. ENT: No runny nose. No epistaxis. No sinus pain. No odynophagia. No congestion. RESPIRATORY: No cough, no congestion. No hemoptysis. No shortness of breath. CARDIOVASCULAR: No angina symptoms. No CHF symptoms. No atypical chest pain for CAD. No palpitations. No orthopnea. GASTROINTESTINAL: No abdominal pain. No nausea or vomiting. No diarrhea or constipation. No hematemesis. No hematochezia. GENITOURINARY: No urgency. No frequency. No dysuria. No hematuria. No obstructive symptoms. No discharge. No pain. No significant abnormal bleeding. MUSCULOSKELETAL: No musculoskeletal pain; no joint swelling. NEUROLOGICAL: Awake, alert, oriented to time, place and person. No headache. No neck pain. No syncope. No seizures. No dizziness. PSYCHIATRIC: Not anxious. No depression. No suicidal thoughts. No homicidal thoughts. SKIN: No rash. No lesions. No wounds. ENDOCRINE: No unexplained weight loss. No weight gain. HEMATOLOGIC/LYMPHATIC: No anemia. No purpura. No petechiae. No prolonged or excessive bleeding. No palpable lymph nodes. PHYSICAL EXAMINATION: GENERAL: The patient is awake, alert and oriented, lying/sitting in bed in no distress. VITAL SIGNS: Temperature 98.4 F, Pulse 76, Respiratory Rate 16, BP 130/69, Pulse Ox 96% HEENT: Head normocephalic, atraumatic. Eyes: Extraocular muscles are intact. Pupils are equal, round and reactive to light and accommodation. Ears: No lesions. Nose appeared normal. Throat: No exudate or erythema. NECK: Supple. No JVD, no carotid bruit. No lymphadenopathy or thyromegaly. LUNGS: Diminished breath sounds. Clear to auscultation. Percussion note normal. Chest symmetrical. HEART: S1, S2, no S3. No murmurs. No cyanosis or clubbing. No ascites. Pulses: Dorsalis pedis and posterior tibial pulses +1 to +2 both sides. ABDOMEN: Soft. Non-tender. Bowel sounds active. No CVA tenderness. No mass felt. EXTREMITIES: No edema. Full range of motion of all extremities, equal. NEUROLOGIC: No focal deficit. Cranial nerves II through XII are grossly intact. No headache, no double vision or headache. SKIN: Warm and dry. Intact. Turgor-normal. LYMPHATIC: No palpable lymph nodes/no lymphedema. MUSCULOSKELETAL: Normal joints with no swelling. Muscle tone is normal. LAB REVIEW: 12/17/18 04:44 12/17/18 04:44 12/17/18 04:44: Sodium 130.0 L, Potassium 3.99, Chloride 95.8 L, Carbon Dioxide 28.0, Anion Gap 10.19, BUN 6.4 L, Creatinine 0.62, Estimated GFR (MDRD) 96.00, BUN/Creatinine Ratio 10.32, Glucose 102.5, Calcium 9.00, Total Bilirubin 0.40, AST 19.2, ALT 22.3, Alkaline Phosphatase 36.4 L, Total Protein 6.16 L, Albumin 3.77, Globulin 2.39, Albumin/Globulin Ratio 1.57 12/17/18 04:44: WBC 5.30, RBC 3.84 L, Hgb 11.9 L, Hct 34.4 L, MCV 89.6, MCH 31.0 , MCHC 34.6, RDW Coeff of Wendi 12.8, Plt Count 235, Immature Gran % (Auto) 0.2, Neut % (Auto) 66.8, Lymph % (Auto) 23.2, [place] % (Auto) 9.2, Eos % (Auto) 0.4, Baso % (Auto) 0.2, Immature Gran # (Auto) 0.0, Neut # (Auto) 3.5, Lymph # (Auto ) 1.2, [place] # (Auto) 0.5, Eos # (Auto) 0.0, Baso # (Auto) 0.0 12/16/18 08:42: Sodium 131.2 L, Potassium 4.05, Chloride 95.1 L, Carbon Dioxide 29.6, Anion Gap 10.55, BUN 6.6 L, Creatinine 0.65, Estimated GFR (MDRD) 91.00, BUN/Creatinine Ratio 10.15, Glucose 108.5 H, Calcium 9.12, Total Bilirubin 0.46 , AST 16.5, ALT 27.8, Alkaline Phosphatase 36.7 L, Total Protein 6.17 L, Albumin 3.62, Globulin 2.55, Albumin/Globulin Ratio 1.41 12/16/18 08:42: WBC 6.67, RBC 3.83 L, Hgb 12.1, Hct 35.1 L, MCV 91.6, MCH 31.6 H , MCHC 34.5, RDW Coeff of Wendi 13.1, Plt Count 271, Immature Gran % (Auto) 0.1, Neut % (Auto) 71.4, Lymph % (Auto) 19.3, [place] % (Auto) 8.2, Eos % (Auto) 0.7, Baso % (Auto) 0.3, Immature Gran # (Auto) 0.0, Neut # (Auto) 4.8, Lymph # (Auto ) 1.3, N[place] # (Auto) 0.6, Eos # (Auto) 0.1, Baso # (Auto) 0.0 ASSESSMENT: 1. URINARY TRACT INFECTION 2. MIGRAINE HEADACHES 3. POLYARTHRITIS RECOMMENDATIONS/PLAN: 1. Recommend the patient stay and again she refuses but agrees to stay until 5 p.m. 2. Macrobid 100 mg p.o. b.i.d. 3. Resume Gentamicin one dose now and another dose. 4. D/C IV fluids. 5. Fioricet, two this morning and q.6hr. Plan and coordination of the patient's care discussed in the presence of Senior Wind Turbine Technician and Nurse. CONDITION: Stable SCRIBED BY: ANJUM BAPTISTE, Director Of Enterprise Strategy scribed while in presence of service performed by Dr. Mar/Diane Toro APRN on 12/17/18 ([id number])
[2018-12-17] MEDS ORDERED: GENTAMICIN SULFATE 80 MG in SODIUM CHLORIDE 50 ML IV ONE ×4 (10:30)
[2018-12-17] MEDS ORDERED: FIORICET PO ONE (14:30)
--- NOTE | 2018-12-17 14:35 | CONS ---
DATE OF CONSULTATION: 12/15/18 REASON FOR CONSULTATION: Rising procalcitonin. REVIEW OF SYSTEMS: CONSTITUTIONAL: No night sweats. No fatigue, malaise, lethargy. No fever or chills. HEENT: Eyes: No visual changes. No eye pain. No eye discharge. ENT: No sinus drainage. No epistaxis. No sinus pain. No sore throat. No odynophagia. No ear pain. No congestion. RESPIRATORY: No cough, no congestion. No hemoptysis. No shortness of breath. CARDIOVASCULAR: No angina symptoms. No CHF symptoms. No atypical chest pain for CAD. No palpitations. No orthopnea. GASTROINTESTINAL: No abdominal pain. No nausea or vomiting. No diarrhea or constipation. No hematemesis. No hematochezia. GENITOURINARY: No urgency. No frequency. No dysuria. No hematuria. No obstructive symptoms. No discharge. No pain. No significant abnormal bleeding. MUSCULOSKELETAL: No musculoskeletal pain. No joint swelling. NEUROLOGICAL: No headache. No neck pain. No syncope. No seizures. No dizziness. PSYCHIATRIC: Not anxious. No depression. No suicidal thoughts. No homicidal thoughts. SKIN: No rash. No lesions. No wounds. ENDOCRINE: No unexplained weight loss. No weight gain. HEMATOLOGIC/LYMPHATIC: No anemia. No purpura. No petechiae. No prolonged or excessive bleeding. No palpable lymph nodes. MEDICATIONS: Xanax Flonase Soma Oxycodone Ambien Benicar Hydrochlorothiazide Omeprazole Vitamin D ALLERGIES: CIPROFLOXACIN, IODINATED DYE, NONSTEROIDAL ANTIINFLAMMATORY, BENICAR , SULFAMETHAXAZOLE, BACTRIM PAST MEDICAL HISTORY: Generalized osteoarthritis DJD spine Hypertension Anxiety syndrome PAST SURGICAL HISTORY: Right hip replacement, 2014 Breast biopsy times three Heart cath times two Cholecystectomy Hysterectomy Cervical surgery times three Lumbar surgery times 5 SOCIAL/PERSONAL/FAMILY HISTORY: The patient is nonsmoker. No alcohol abuse. She is and lives with . She does all activity of daily living. PHYSICAL EXAMINATION: GENERAL: The patient is oriented to time, place and person. Color looks good. VITAL SIGNS: Temperature 98.4, pulse 70, respiratory rate 18, blood pressure 137 /66, pulse ox 95% on room air. HEENT: Head normocephalic, atraumatic. Eyes: Extraocular muscles are intact. Pupils are equal, round and reactive to light and accommodation. Ears: No lesions. Nose appeared normal. Throat: No exudate or erythema. NECK: Supple. No JVD, no carotid bruit. No lymphadenopathy or thyromegaly. LUNGS: Decreased breath sounds but clear to auscultation. Percussion note normal. Chest symmetrical. HEART: S1, S2, no S3. No murmurs. No cyanosis or clubbing. No ascites. Pulses: Dorsalis pedis and posterior tibial pulses +1 to +2 bilaterally. ABDOMEN: Soft. Nontender. Bowel sounds active. No CVA tenderness. No mass felt. EXTREMITIES: No pedal edema. Full range of motion of all extremities, equal. NEUROLOGIC: Normal COMMERCIAL AGENT. No focal deficit. Cranial nerves II through XII are grossly intact. No headache, no double vision or headache. SKIN: Not dry. Intact. Turgor - normal. LYMPHATIC: No palpable lymph nodes/no lymphedema. MUSCULOSKELETAL: Normal joints with no swelling. Muscle tone is normal. Hemoglobin 11.7, hematocrit 34, WBC 9,300, normal differential. Creatinine 0.6, BUN 12, potassium 4. ASSESSMENT: 1. ACUTE URINARY TRACT INFECTION 2. SEPTICEMIA RECOMMENDATIONS: 1. Agree with the patient's present management with Gentamicin. 2. Awaiting blood cultures. 3. Stable with no evidence of septicemia. No leukcoytosis. Afebrile with improved appetite. Normal kidney functions. CONDITION: Stable MTDD
--- NOTE | 2018-12-17 14:42 | CONS ---
DATE OF SERVICE: 12/16/18 CONSULT FOLLOWUP SUBJECTIVE: 68-year-old white female was hospitalized with acute pyelonephritis, urinary tract infection. The patient is practically afebrile, feeling a lot better. She had a migraine headache, which responded to Fioricet. She is feeling better this morning. REVIEW OF SYSTEMS: CONSTITUTIONAL: No night sweats. No fatigue, malaise, lethargy. No fever or chills. HEENT: Eyes: No visual changes. No eye pain. No eye discharge. ENT: No runny nose. No epistaxis. No sinus pain. No sore throat. No odynophagia. No ear pain. No congestion. RESPIRATORY: No cough, no congestion. No hemoptysis. CARDIOVASCULAR: No angina symptoms. No CHF symptoms. No atypical chest pain for CAD. No palpitations. No shortness of breath. GASTROINTESTINAL: No abdominal pain. No nausea or vomiting. No diarrhea or constipation. No hematemesis. No hematochezia. GENITOURINARY: No urgency. No frequency. No dysuria. No hematuria. No obstructive symptoms. No discharge. No pain. No significant abnormal bleeding. MUSCULOSKELETAL: No musculoskeletal pain. No joint swelling. No arthritis. NEUROLOGICAL: No headache. No neck pain. No syncope. No seizures. No dizziness. PSYCHIATRIC: Not anxious. No depression. No suicidal thoughts. No homicidal thoughts. SKIN: No rash. No lesions. No wounds. ENDOCRINE: No unexplained weight loss. No weight gain. HEMATOLOGIC/LYMPHATIC: No anemia. No purpura. No petechiae. No prolonged or excessive bleeding. No palpable lymph nodes. PHYSICAL EXAMINATION: VITAL SIGNS: Temperature 99, pulse 85, respiratory rate 20, BP 132/73, pulse ox 94%. HEENT: Head normocephalic, atraumatic. Eyes: Extraocular muscles are intact. Pupils are equal, round and reactive to light and accommodation. Ears: No lesions. Nose appeared normal. Throat: No exudate or erythema. NECK: Supple. No JVD, no carotid bruit. No lymphadenopathy or thyromegaly. LUNGS: Decreased breath sounds but clear to auscultation. Percussion note normal. Chest symmetrical. HEART: S1, S2, no S3. No murmurs. No cyanosis or clubbing. No ascites. Pulses: Dorsalis pedis and posterior tibial pulses +1 to +2 bilaterally. ABDOMEN: Soft. Nontender. Bowel sounds active. No CVA tenderness. No mass felt. EXTREMITIES: No edema. Full range of motion of all extremities, equal. NEUROLOGIC: No focal deficit. Cranial nerves II through XII are grossly intact. No headache, no double vision or headache. SKIN: Not dry. Intact. Turgor - normal. LYMPHATIC: No palpable lymph nodes/no lymphedema. MUSCULOSKELETAL: Normal joints with no swelling. Muscle tone is normal. ASSESSMENT: 1. UTI BEING TREATED WITH GENTAMICIN, RESPONDING TO THE TREATMENT; CULTURES PENDING. 2. THE PATIENT IS A SMOKER, STRONGLY ADVISED TO QUIT SMOKING. RECOMMENDATIONS: 1. Will do CBC, CMP today and tomorrow. 2. Counseling done for smoking. CONDITION: Stable MTDD
--- NOTE | 2018-12-17 14:49 | CONS ---
BILLING The patient was seen on consultation from 12/15/18 - Level 5 Followup - 12/16/18 - intermediate Followup - 12/17/18 - intermediate MTDD
--- NOTE | 2018-12-18 13:31 | CONS ---
DATE OF SERVICE: 12/17/18 CONSULT FOLLOWUP SUBJECTIVE: The patient was seen and examined with the nurse practitioner. She seems to have improved clinically. She is eating better. She was running a low grade fever. PHYSICAL EXAMINATION: HEENT: Head normocephalic, atraumatic. Eyes: Extraocular muscles are intact. Pupils are equal, round and reactive to light and accommodation. Ears: No lesions. Nose appeared normal. Throat: No exudate or erythema. NECK: Supple. No JVD, no carotid bruit. No lymphadenopathy or thyromegaly. LUNGS: Clear to auscultation. Percussion note normal. Chest symmetrical. HEART: S1, S2, no S3. No murmurs. No cyanosis or clubbing. No ascites. Pulses: Dorsalis pedis and posterior tibial pulses +1 to +2 bilaterally. ABDOMEN: Soft. Nontender. Bowel sounds active. No CVA tenderness. No mass felt. EXTREMITIES: No edema. Full range of motion of all extremities, equal. NEUROLOGIC: No focal deficit. Cranial nerves II through XII are grossly intact. No headache, no double vision or headache. SKIN: Not dry. Intact. Turgor - normal. LYMPHATIC: No palpable lymph nodes/no lymphedema. MUSCULOSKELETAL: Normal joints with no swelling. Muscle tone is normal. PLAN: The patient's one dose of Gentamicin was missed yesterday by nursing staff. The patient's condition is stable. There is nothing more to add to this patient' s present management. I will sign out of the case. [facility]
--- NOTE | 2018-12-18 13:44 | DS ---
DATE OF SERVICE: 12/17/18 HISTORY OF PRESENT ILLNESS: Mrs. Graff is a pleasant 68 [address] patient of Dr. Nogueira who presented to the emergency department on the date of admission after one week of urinary symptoms. The symptoms initially started approximately one week ago with just not feeling well. She had developed some fever, chills, nausea, burning on urinary and started a left over prescription of Augmentin 875mg once daily on Monday, Monday and Monday. On Monday she started feeling pretty good and then by Monday she started feeling worse again. On the chills, fever and nausea got worse and that is when she decided to present to the emergency department. On admission to the emergency department her fever was 101, she was tachycardic at 110. Her WBC was elevated at 14,000. She had a hematuria with nitrates in her urine as well as leukocytes. While in the emergency department urine cultures were obtained as well as blood cultures, labs and the patient was started on IV Rocephin. She was given IV nausea medications and a CT scan of the abdomen and pelvis was obtained. The CT scan of the abdomen and pelvis revealed bladder wall thickening as well as cystitis can not be excluded. Due the high fever, abnormal CT scan of the abdomen and pelvis and concerns for bacteremia the patient was admitted for IV antibiotics, IV fluids and monitoring. She had remained in the hospital through the weekend on IV Rocephin and Gentamicin. The Gentamicin was not given last night. She did spike a fever through the night. Her vital signs records were reviewed and she did have 101 as well as 100.3 fever through the night. The Gentamicin was restarted and her fever has come down. Her repeat urinalysis was reviewed and she did have 3+ proteinuria, the nitrates were gone, leukocytes were negative. The blood cultures were negative and the urine culture was inconclusive due to the fact that she did start on an antibiotics prior to admission to the emergency department. It is recommended that she continue Gentamicin however the patient is very insistent that she be discharged to home on an oral antibiotic. She is agreeable to take another course of Gentamicin this afternoon at 3:00. Her appetite is good. Her intake and output has been good. Again, we do have reservation with sending the patient home but again she is very insistent. Her temperatures have been afebrile today. Pertinent labs as far as her WBC for WBC has come down to 5.30, hgb today 11.9, hct 34.4 and plt count 235. Today her sodium is 130 and potassium 3.99, BUN 6.4, creatinine 0.62, liver functions have come down to normal range and today pancreatic enzymes are normal and thyroid is normal. Hepatitis panel is negative, urine culture has already been discussed. Again her blood cultures are negative and urine culture was inconclusive. VITAL SIGNS: Temperature 98.4, pulse 76, blood pressure 130/69, respiratory rate 16. LUNGS: Diminished but clear LOWER EXTREMITIES: No edema. peripheral pulses were palpable HEART: Regular ABDOMEN: Soft, bowel sounds were positive. No masses, no bruit, nontender. FINAL DIAGNOSES: 1. Urinary tract infection probable bacteremia not confirmed 2. Mild dehydration 3. Elevated liver function test, source undetermined with a negative hepatitis panel 4. Procalcitonin elevation on admission 5. Failed back surgery syndrome, lumbar region 6. Degenerative joint disease 7. Right total hip replacement, history of 8. Chronic knee pain status post surgery 9. Chronic tobacco use, two packs per day persistent 10.History of fibromyalgia 11.History of Rheumatoid arthritis previous seen by painting manager Dr. John 12.History of insomnia on Ambien 13.History of gastroesophageal reflux disease, on medication to help control this 14.Anxiety PLAN: 1. Discharge the patient home and she will be discharged home in stable condition 2. No home health will be needed 3. She will be given a prescribed for Macrobid 100mg #14 take one PO twice a day for 7 days. That prescription will be called to [facility] in [place]. 4. She will have a followup appointment this 5. She has been instructed to call with any concerns or problems TIME SPENT: GREATER THAN 30 MINUTES MTDD
== END 2018-12-17 15:51 | disposition home or self-care (01) | DRG 690 ==
LOC: ED 15:24 → MEDSURG B 19:17
PROVIDERS: ADMIT General Practice; ATTEND General Practice
DX: N39.0 Urinary tract infection, site not specified (principal); R30.0 Dysuria; R50.9 Fever, unspecified; M54.9 Dorsalgia, unspecified; R11.0 Nausea; R53.1 Weakness; R53.81 Other malaise; R63.0 Anorexia; R14.0 Abdominal distension (gaseous); Z72.0 Tobacco use; E86.0 Dehydration; M54.5 Low back pain; M19.90 Unspecified osteoarthritis, unspecified site; F41.9 Anxiety disorder, unspecified
CPT/HCPCS: 36415; 80053; 80069; 80074; 80170; 81001; 82150; 83605; 83690; 84145; 85025; 87040; 87086; 93005; 93010; 96365; 96366; 99285

== ENCOUNTER 2018-12-25 10:30 | Outpatient (CLI) | END 2018-12-25 10:31 | disposition home or self-care (01) | LOC: LAB 10:30 | PROVIDERS: ATTEND General Practice | DX: N39.0 Urinary tract infection, site not specified (principal) | CPT/HCPCS: 81001 ==

== ENCOUNTER 2022-02-06 22:41 | Inpatient (IN) ==
[2022-02-06] MEDS ORDERED: TRANDATE IVP STA (23:03)
[2022-02-06 23:27] LABS: BASOPHILS % (AUTO) 0.2 % (0.0-3.0); EOSINOPHILS # (AUTO) 0.1 K/ul (0.0-0.7); EOSINOPHILS % (AUTO) 0.7 % (0.0-7.0); HEMATOCRIT 38.9 % (37.0-47.0); HEMOGLOBIN 13.6 g/dl (12.0-16.0); IMMATURE GRANULOCYTE % (AUTO) 0.2 % (0.0-5.0); LYMPHOCYTES # (AUTO) 2.5 K/uL (0.60-3.4); LYMPHOCYTES % (AUTO) 30.3 (10.0-50.0); MEAN CORPUSCULAR HEMOGLOBIN 30.7 pg (27.0-31.0); MEAN CORPUSCULAR VOLUME 87.8 fl (81.0-99.0); MONOCYTES # (AUTO) 0.6 K/uL (0.4-2.0); MONOCYTES % (AUTO) 7.9 (0-10); NEUTROPHILS # (AUTO) 4.9 K/ul (2.0-6.9); NEUTROPHILS % (AUTO) 60.7 % (42.2-75.2); PLATELET COUNT 295 10^3/uL (140-440); RDW COEFFICIENT OF VARIATION 13.3 % (11.6-14.8); RED BLOOD COUNT 4.43 10^6/ul (4.20-5.40); WHITE BLOOD COUNT 8.09 K/ul (4.6-10.2)
[2022-02-06 23:36] LABS: BILIRUBIN,URINE Negative (NEGATIVE); CLARITY,URINE Clear (CLEAR); COLOR,URINE Yellow (YELLOW); GLUCOSE, URINE (UA) Negative (NEGATIVE); KETONES,URINE Negative (NEGATIVE); LEUKOCYTE ESTERASE ,URINE Negative (NEGATIVE); NITRITE,URINE Negative (NEGATIVE); PROTEIN,URINE Negative (NEGATIVE); URINE, BLOOD Negative (NEGATIVE); UROBILINOGEN,URINE 0.2 (0.2)
[2022-02-06 23:40] LABS: ALANINE AMINOTRANSFERASE 13.2 U/L (0-35); ALBUMIN 4.42 g/dL (3.5-5.0); ALKALINE PHOSPHATASE 59.6 U/L (53-141); ASPARTATE AMINO TRANSFERASE 25.9 U/L (14-36); BILIRUBIN,TOTAL 0.29 mg/dL (0.2-1.3); BLOOD UREA NITROGEN 10.7 mg/dL (7-17); CALCIUM 9.09 mg/dL (8.4-10.2); CARBON DIOXIDE 27.7 mmol/L (22-30.0); CHLORIDE 92.3 mmol/L (98-107); CREATININE 0.61 mg/dL (0.60-1.30); GLUCOSE 101.6 mg/dL (74-106); POTASSIUM 3.35 mmol/L (3.5-5.1); SODIUM 129.1 mmol/L (134.5-145); TOTAL PROTEIN 7.26 g/dL (6.3-8.2)
[2022-02-06 23:52] LABS: TROPONIN I < 0.012 ng/ml (0.0000-0.120)
--- NOTE | 2022-02-07 00:42 | DI ---
EXAM: AP chest. HISTORY: Hypertension. FINDINGS The bones are unremarkable. The cardiac silhouette and pulmonary vasculature are within normal limit s. The costophrenic angles are clear. No infiltrate or consolidation. There are calcified granulom as. Impression: No acute cardiopulmonary disease.
--- NOTE | 2022-02-07 00:42 | CT ---
EXAM: CT head without contrast. HISTORY: Headache and elevated blood pressure. PROCEDURE: Contiguous axial CT images of the head without contrast with coronal and sagittal reforma ts. FINDINGS: There is diffuse cerebral and cerebellar atrophy. The ventricles and basal cisterns are no rmal in size and configuration. No evidence of mass or midline shift. No intracranial hemorrhage or evidence of large vessel infarct. No extra-axial fluid collection. The paranasal sinuses and masto id air cells are normal in appearance. Impression: No intracranial hemorrhage or evidence of large vessel infarct. Diffuse atrophy as described. All CT scans are performed using dose optimization techniques as appropriate to the performed exam an d include at least one of the following: Automated exposure control, adjustment of the mA and/or kV according t o size, and the use of iterative reconstruction technique.
--- NOTE | 2022-02-07 00:44 | ED.PDOC ---
General ED Provider: Dr. SERG ZARATE Chief Complaint: Hypertension Stated Complaint: my bp is up and i have a au Time Seen by Provider: 02/07/22 00:41 Mode of Arrival: Wheelchair Information Source: Patient Exam Limitations: No limitations Primary Care Provider: ROSY OLIVEROS Nursing and Triage Documentation Reviewed and Agree: Yes Does patient meet sepsis criteria?: No System Inflammatory Response Syndrome: Not Applicable Sepsis Protocol: For patient's 13 years and over: Temp is 96.8 and below OR 101 and greater Pulse >90 BPM Resp >20/minute Acutely Altered Mental Status Are patient's symptoms suggestive of a new infection, such as: -Pneumonia -Skin, Soft Tissue -Endocarditis -UTI -Bone, Joint Infection -Implantable Device -Acute Abdominal Infection -Wound Infection -Meningitis -Blood Stream Catheter Infection -Unknown Cardiovascular Complaint Exam Hypertension Complaint/Exam Onset/Duration: tonight Symptoms Are: Still present Timing: Constant Aggravating: Reports None Alleviating: Reports None Associated Signs and Symptoms: Reports Anxiety, Headache and Dizziness Cardiac Risk Factors: Reports Hypertension Recent Change in Medications: No A/V Nicking: No Papilledema Present: No JVD Present: No Carotid Bruit Present: No Femoral Pulses Bounding: Yes Differential Diagnoses: Hypertension, Hypertensive Crisis and Hypertensive Urgency Quality Indicator For Non-Traumatic Chest Pain/Syncope: EKG Performed Review of Systems Review Of Systems Constitutional: Reports No symptoms Eyes: Reports No symptoms Ears, Nose, Mouth, Throat: Reports No symptoms Respiratory: Reports No symptoms Cardiac: Reports No symptoms GI: Reports No symptoms : Reports No symptoms Musculoskeletal: Reports No symptoms Skin: Reports No symptoms Neurological: Reports Headache Endocrine: Reports No symptoms Hematologic/Lymphatic: Reports No symptoms All Other Systems: Reviewed and Negative [facility] Medical History Arthritis Degenerative disc disease History of hip replacement Hypertension Spinal stenosis Social History Smoking and tobacco status: Current every day smoker History of recent travel: No Surgical History History of heart surgery History of joint surgery History of surgery (10/17/17) neck surgery (03/09/17) Status post cholecystectomy Female Reproductive History Menstrual Hx Hysterectomy: Yes Hx Tubal Ligation: No Physical Exam Physical Exam Appearance: Reports Well-appearing Ill-appearing: None Pain Distress: None Eyes: Reports NAM, EOMI and Conjunctiva clear ENT: Reports Ears normal, Nose normal and Oropharynx normal Neck: Supple Respiratory: Reports Airway patent, Breath sounds clear and Breath sounds equal Cardiovascular: Reports RRR, Pulses normal and No rub GI/: Reports Soft, Nontender and No masses Musculoskeletal: Reports Normal strength, ROM intact, No edema and No calf tenderness Skin: Reports Warm, Dry and Normal color Neurological: Reports Sensation intact, Motor intact, Reflexes intact, Cranial nerves intact, Alert and Oriented Psychiatric: Reports Affect appropriate, Mood appropriate and Anxious Interpretation Radiology Interpretation Radiology Interpretation By: Radiologist Radiology Results: Negative Exam Interpreted: CT Scan EKG Interpretation Time of EKG #1: 00:45 Rate: Normal Rhythm: Sinus Ectopy: None [place]: NL ST Segment: Normal Interpretation: nsr Re-Evaluation Re-Evaluation Time of Re-Evaluation: 00:56 Status: Improved Vital Signs Stable: Yes Pain Level: 0 Appearance: NAD Lungs: Clear Skin: Warm and Dry Neuro: Alert and Oriented X3 CV: RRR Physician Notification Case Discussed Physician Notified: dr oliveros Time of Notification: 00:56 Critical Care Note Critical Care Note Total Critical Care Time (mins): 30 Course Course Hematology/Chemistry: 02/06/22 23:20 02/06/22 23:20 Orders, Labs, Meds: Lab Review 02/06/22 02/06/22 02/06/22 23:00 23:20 23:20 WBC 8.09 RBC 4.43 Hgb 13.6 Hct 38.9 MCV 87.8 MCH 30.7 MCHC 35.0 RDW Coeff of Wendi 13.3 Plt Count 295 Immature Gran % (Auto) 0.2 Neut % (Auto) 60.7 Lymph % (Auto) 30.3 Min[place] % (Auto) 7.9 Eos % (Auto) 0.7 Baso % (Auto) 0.2 Neut # (Auto) 4.9 Lymph # (Auto) 2.5 Min[place] # (Auto) 0.6 Eos # (Auto) 0.1 Baso # (Auto) 0.0 Immature Gran # (Auto) 0.0 Sodium 129.1 L Potassium 3.35 L Chloride 92.3 L Carbon Dioxide 27.7 Anion Gap 12.45 BUN 10.7 Creatinine 0.61 Estimated GFR (MDRD) 97.00 BUN/Creatinine Ratio 17.54 Glucose 101.6 Calcium 9.09 Total Bilirubin 0.29 AST 25.9 ALT 13.2 Alkaline Phosphatase 59.6 Troponin I < 0.012 Total Protein 7.26 Albumin 4.42 Globulin 2.84 Albumin/Globulin Ratio 1.55 TSH 2.000 Free T4 Urine Color Yellow Urine Clarity Clear Urine pH 7.0 Ur Specific [place] 1.010 Urine Protein Negative Urine Glucose (UA) Negative Urine Ketones Negative Urine Blood Negative Urine Nitrite Negative Urine Bilirubin Negative Urine Urobilinogen 0.2 Ur Leukocyte Esterase Negative SARS CoV-2 RNA Rapid LUIS ANGEL 02/06/22 02/06/22 23:20 23:20 WBC RBC Hgb Hct MCV MCH MCHC RDW Coeff of Wendi Plt Count Immature Gran % (Auto) Neut % (Auto) Lymph % (Auto) [place] % (Auto) Eos % (Auto) Baso % (Auto) Neut # (Auto) Lymph # (Auto) [place] # (Auto) Eos # (Auto) Baso # (Auto) Immature Gran # (Auto) Sodium Potassium Chloride Carbon Dioxide Anion Gap BUN Creatinine Estimated GFR (MDRD) BUN/Creatinine Ratio Glucose Calcium Total Bilirubin AST ALT Alkaline Phosphatase Troponin I Total Protein Albumin Globulin Albumin/Globulin Ratio TSH Free T4 0.86 Urine Color Urine Clarity Urine pH Ur Specific [place] Urine Protein Urine Glucose (UA) Urine Ketones Urine Blood Urine Nitrite Urine Bilirubin Urine Urobilinogen Ur Leukocyte Esterase SARS CoV-2 RNA Rapid LUIS ANGEL Negative Orders Category Date Time Status EKG-(ED ONLY) Stat CARDIO 02/06/22 23:02 Ordered ED HUMAN RESOURCES FILE CLERK APPLIED .ONCE EMERGENCY 02/06/22 23:02 Active ED IV/MEDIPORT/POWERPORT .ONCE EMERGENCY 02/06/22 23:02 Active CBC W/ AUTO DIFF Stat LAB 02/06/22 23:20 Completed COMPREHENSIVE METABOLIC PANEL Stat LAB 02/06/22 23:20 Completed FREE T4 (FREE THYROXINE) Stat LAB 02/06/22 23:20 Completed SARS COV-2 RNA RAPID LUIS ANGEL Stat LAB 02/06/22 23:20 Completed TROPONIN I Stat LAB 02/06/22 23:20 Completed TSH [THYROID STIMULATING HORMONE] Stat LAB 02/06/22 23:20 Completed URINALYSIS C & S IF INDICATED Stat LAB 02/06/22 23:00 Completed 0.9 % Sodium Chloride [Saline Flush] MEDS 02/06/22 23:02 Active 1 syr IVF PRN PRN Labetalol HCl [Trandate] MEDS 02/06/22 23:03 Discontinued 20 mg IVP ONCE STA CT HEAD W/O CONTRAST Stat RADS 02/06/22 23:03 Completed CXR [CHEST, 1V AP ONLY] Stat RADS 02/06/22 23:09 Completed Medications Generic Name Dose Route Start Last Admin Trade Name Freq PRN Reason Stop Dose Admin Sodium Chloride 1 syr 02/06/22 23:02 0.9% Sodium Chloride 10 Ml Disp.Syrin IVF PRN PRN To flush IV Discontinued Medications Generic Name Dose Route Start Last Admin Trade Name Freq PRN Reason Stop Dose Admin Labetalol HCl 20 mg 02/06/22 23:03 02/06/22 23:33 Labetalol Hcl 20 Mg/4 Ml Disp.Syrin IVP 02/06/22 23:04 20 mg ONCE STA Administration Vital Signs: Temp Pulse Resp BP Pulse Ox 02/07/22 00:10 59 L 17 169/88 H 96 02/06/22 22:53 99.6 F 65 18 228/94 H 97 RYAN Risk Score RYAN Risk Score: Risk Score Odds of by 30D 0 0.1 (0.1-0.2) 1 0.3 (0.2-0.3) 2 0.4 (0.3-0.5) 3 0.7 (0.6-0.9) 4 1.2 (1.0-1.5) 5 2.2 (1.9-2.6) 6 3.0 (2.5-3.6) 7 4.8 (3.8-6.1) Discharge Plan Discharge Patient Disposition: ADMITTED INPATIENT Discharge Problem: Brain TIA Prescriptions: No Action carisoprodol [Soma] 350 MG tablet 350 mg PO TID PRN (Reason: Spasms) 0RF omeprazole 20 MG capsule,delayed release(DR/EC) 20 mg PO DAILY PRN (Reason: gerd) Qty: 30 2RF Rx Instructions: Take one capsule daily as needed for acid reflux. Take until symptoms resolve then stop. [id number] 1 EACH tablet 1 ea PO PRN Qty: 30 1RF Rx Instructions: Take one at onset of headache, may repeat x1. escitalopram oxalate 10 MG tablet 10 mg PO DAILY 30 Days Qty: 30 1RF fluticasone propionate 1 SPRAY spray,suspension 2 spray NS DAILY PRN (Reason: Nasal Congestion) 0RF vitamin B complex [Balanced B-100] 1 TAB tablet 1 tab PO DAILY 0RF alprazolam [Xanax] 0.25 mg Tablet 0.25 mg PO TID PRN (Reason: Anxiety) 0RF losartan-hydrochlorothiazide 50-12.5 mg Tablet 1 tab PO DAILY 0RF oxycodone 15 mg tablet 15 mg PO 4XD PRN (Reason: Pain) 0RF cholecalciferol (vitamin D3) 50,000 UNIT capsule 50,000 unit PO MONTHLY 0RF Rx Instructions: Take one tablet monthly. Did you review [place] RENEWABLE [employer]GY BROKER?: Not Applicable ED Provider: SERG GREENWOOD Condition: Fair Physician Progress Note: []
[2022-02-07] MEDS ORDERED: FLONASE NAS PRN (01:00)
[2022-02-07] MEDS ORDERED: CHOLECALCIFEROL 50000 UNIT PO SCH (01:00)
[2022-02-07] MEDS ORDERED: PRILOSEC PO PRN (01:00)
[2022-02-07] MEDS ORDERED: FIORICET PO SCH (01:00)
[2022-02-07] MEDS ORDERED: CATAPRES PO PRN (01:03)
[2022-02-07] MEDS ORDERED: PERCOCET 5-325 PO STA (01:07)
[2022-02-07 01:54] VITALS: BMI 25.9
[2022-02-07] MEDS: XANAX PO PRN ×3 (02:13→21:09)
[2022-02-07] MEDS: SOMA PO PRN (02:13)
[2022-02-07 05:07] LABS: BASOPHILS % (AUTO) 0.3 % (0.0-3.0); EOSINOPHILS % (AUTO) 0.4 % (0.0-7.0); HEMATOCRIT 34.9 % (37.0-47.0); HEMOGLOBIN 12.4 g/dl (12.0-16.0); IMMATURE GRANULOCYTE % (AUTO) 0.4 % (0.0-5.0); LYMPHOCYTES # (AUTO) 2.3 K/uL (0.60-3.4); LYMPHOCYTES % (AUTO) 30.3 (10.0-50.0); MEAN CORPUSCULAR HEMOGLOBIN 31.1 pg (27.0-31.0); MEAN CORPUSCULAR HGB CONC 35.5 (31.8-35.4); MEAN CORPUSCULAR VOLUME 87.5 fl (81.0-99.0); MONOCYTES # (AUTO) 0.6 K/uL (0.4-2.0); MONOCYTES % (AUTO) 7.2 (0-10); NEUTROPHILS # (AUTO) 4.7 K/ul (2.0-6.9); NEUTROPHILS % (AUTO) 61.4 % (42.2-75.2); PLATELET COUNT 275 10^3/uL (140-440); RDW COEFFICIENT OF VARIATION 13.2 % (11.6-14.8); RED BLOOD COUNT 3.99 10^6/ul (4.20-5.40); WHITE BLOOD COUNT 7.66 K/ul (4.6-10.2)
[2022-02-07 05:25] LABS: ALANINE AMINOTRANSFERASE 13.1 U/L (0-35); ALBUMIN 3.96 g/dL (3.5-5.0); ALKALINE PHOSPHATASE 46.6 U/L (53-141); ASPARTATE AMINO TRANSFERASE 17.6 U/L (14-36); BILIRUBIN,TOTAL 0.34 mg/dL (0.2-1.3); CALCIUM 8.88 mg/dL (8.4-10.2); CARBON DIOXIDE 26.7 mmol/L (22-30.0); CHLORIDE 95.2 mmol/L (98-107); CREATININE 0.48 mg/dL (0.60-1.30); GLUCOSE 99.8 mg/dL (74-106); POTASSIUM 3.44 mmol/L (3.5-5.1); SODIUM 128.3 mmol/L (134.5-145); TOTAL PROTEIN 6.58 g/dL (6.3-8.2)
[2022-02-07] MEDS: BALANCED B-100 PO SCH (08:54)
[2022-02-07] MEDS: OXYCODONE PO PRN ×3 (08:55→17:57)
[2022-02-07] MEDS: LEXAPRO PO SCH (08:55)
[2022-02-07] MEDS ORDERED: VITAMIN B COMPLEX PO SCH (09:00)
[2022-02-07] MEDS ORDERED: HYZAAR 50-12.5 MG TAB PO SCH (09:00)
[2022-02-07] MEDS: PRILOSEC PO SCH (09:36)
[2022-02-07] MEDS ORDERED: FIORICET PO PRN (11:33)
[2022-02-07] MEDS ORDERED: ATROPINE SULFATE PFS IVP PRN (12:25)
[2022-02-07] MEDS ORDERED: NITROSTAT SL PRN (12:25)
[2022-02-07] MEDS ORDERED: TYLENOL PO PRN (12:25)
[2022-02-07] MEDS ORDERED: ANTIVERT PO PRN (12:45)
[2022-02-07] MEDS: NICODERM 21 MG TD SCH (13:25)
[2022-02-07 13:27] LABS: BILIRUBIN,URINE Negative (NEGATIVE); CLARITY,URINE Clear (CLEAR); COLOR,URINE Yellow (YELLOW); GLUCOSE, URINE (UA) Negative (NEGATIVE); KETONES,URINE Negative (NEGATIVE); LEUKOCYTE ESTERASE ,URINE Negative (NEGATIVE); NITRITE,URINE Negative (NEGATIVE); PROTEIN,URINE Negative (NEGATIVE); URINE, BLOOD Negative (NEGATIVE); UROBILINOGEN,URINE 0.2 (0.2)
[2022-02-08] MEDS: OXYCODONE PO PRN ×3 (05:07→17:05)
[2022-02-08 05:27] LABS: BASOPHILS % (AUTO) 0.3 % (0.0-3.0); EOSINOPHILS # (AUTO) 0.1 K/ul (0.0-0.7); EOSINOPHILS % (AUTO) 0.9 % (0.0-7.0); HEMATOCRIT 38.3 % (37.0-47.0); HEMOGLOBIN 13.4 g/dl (12.0-16.0); IMMATURE GRANULOCYTE % (AUTO) 0.3 % (0.0-5.0); LYMPHOCYTES # (AUTO) 2.3 K/uL (0.60-3.4); LYMPHOCYTES % (AUTO) 33.4 (10.0-50.0); MEAN CORPUSCULAR HEMOGLOBIN 30.7 pg (27.0-31.0); MEAN CORPUSCULAR VOLUME 87.8 fl (81.0-99.0); MONOCYTES # (AUTO) 0.6 K/uL (0.4-2.0); MONOCYTES % (AUTO) 8.6 (0-10); NEUTROPHILS % (AUTO) 56.5 % (42.2-75.2); PLATELET COUNT 277 10^3/uL (140-440); RDW COEFFICIENT OF VARIATION 13.2 % (11.6-14.8); RED BLOOD COUNT 4.36 10^6/ul (4.20-5.40); WHITE BLOOD COUNT 7.01 K/ul (4.6-10.2)
[2022-02-08 05:43] LABS: ALANINE AMINOTRANSFERASE 12.9 U/L (0-35); ALBUMIN 4.04 g/dL (3.5-5.0); ALKALINE PHOSPHATASE 50.9 U/L (53-141); ASPARTATE AMINO TRANSFERASE 19.6 U/L (14-36); BILIRUBIN,TOTAL 0.35 mg/dL (0.2-1.3); BLOOD UREA NITROGEN 9.9 mg/dL (7-17); CALCIUM 9.02 mg/dL (8.4-10.2); CARBON DIOXIDE 26.9 mmol/L (22-30.0); CHLORIDE 98.7 mmol/L (98-107); CREATININE 0.57 mg/dL (0.60-1.30); GLUCOSE 96.2 mg/dL (74-106); POTASSIUM 3.84 mmol/L (3.5-5.1); SODIUM 132.8 mmol/L (134.5-145); TOTAL PROTEIN 6.76 g/dL (6.3-8.2)
[2022-02-08] MEDS: XANAX PO PRN ×3 (06:14→21:07)
[2022-02-08] MEDS ORDERED: NORVASC PO PRN (08:34)
--- NOTE | 2022-02-08 09:15 | ECHO2D ---
Date of Exam: 02/07/2022 Ordering Physician: DR. ROSY LUU Room #: 106 Reason for Echo: DIZZINESS, SOB, COPD, SMOKING, HTN M-Mode Normal Adult Results LV Dimensions Normal Adult Results AoV Opening excursions >1.6 >1.6 LVEDD-base- 3.5-5.8 4.0 Ao root dimensions 2.0-3.7 2.9 LVESD-base- 3.1-4.6 L. Atrium dimensions 1.9-3.8 4.5 Post. Wall thickness 0.8-1.1 1.2 IV septum (thickness) 0.7-1.2 1.2 Post. Wall excursion 0.72-1.3 NORMAL Septal motion NORMAL Systolic motion R. Ventricular cavity 1.5-2.0 3.5 LVEF 60% 65% Paradoxical septal wall motion NORMAL 2-D : ENLARGED RIGHT VENTRICLE AND LEFT ATRIAL CAVITIES--CALCIFIC MITRAL VALVE ANNULUS, VALVES--NORMAL, NORMAL LEFT VENTRICLE SIZE AND LEFT VENTRICLE CONTRACTILITY COLOR FLOW:NO EFFUSION, NO THROMBUS M-MODE: MV: CALCIFIC MITRAL VALVE ANNULUS AV: NORMAL TV: NORMAL PV: CHAMBER SIZE: ENLARGED LEFT ATRIAL AND RIGHT VENTRICLE CAVITIES WALL MOTION: NORMAL PERICARDIUM: NORMAL INTERPRETATION: 1. LEFT VENTRICLE HYPERTROPHY WITH ENLARGED LEFT ATRIAL CAVITY 2. ENLARGED RIGHT VENTRICLE CAVITY 3. CALCIFIC MITRAL VALVE ANNULUS 4. NORMAL VALVES 5. NORMAL LEFT VENTRICLE SIZE AND LEFT VENTRICLE CONTRACTILITY MTDD
[2022-02-08] MEDS: LEXAPRO PO SCH (10:19)
[2022-02-08] MEDS: BALANCED B-100 PO SCH (10:19)
[2022-02-08] MEDS: COZAAR PO SCH (10:20)
[2022-02-08] MEDS: HYDROCHLOROTHIAZIDE PO SCH (10:20)
[2022-02-08] MEDS: NICODERM 21 MG TD SCH (10:20)
--- NOTE | 2022-02-08 10:23 | PCM.PROG ---
Attending Provider: ATTENDING PROVIDER: Dr. ROSY LUU This patient is seen with Diane Toro, Nurse Practitioner. DATE OF SERVICE: 02/08/22 SUBJECTIVE: This 71 year old /WHITE F was hospitalized 02/07/22. Doing well. Blood pressure up this morning. Pain is being controlled. Denies dizziness. Has carotid scan scheduled for today. REVIEW OF SYSTEMS: CONSTITUTIONAL: No night sweats. No fatigue, malaise, lethargy. No fever or chills. Weakness. HEENT: Eyes: No visual changes. No eye pain. No eye discharge. ENT: No runny nose. No epistaxis. No sinus pain. No odynophagia. No congestion. RESPIRATORY: No cough, no congestion. No hemoptysis. No shortness of breath. CARDIOVASCULAR: No angina symptoms. No CHF symptoms. No atypical chest pain for CAD. No palpitations. No orthopnea.. GASTROINTESTINAL: No abdominal pain. No nausea or vomiting. No diarrhea or constipation. No hematemesis. No hematochezia. GENITOURINARY: No urgency. No frequency. No dysuria. No hematuria. No obstructive symptoms. No discharge. No pain. No significant abnormal bleeding. MUSCULOSKELETAL: No musculoskeletal pain; no joint swelling. Chronic pain. NEUROLOGICAL: Awake, alert, oriented to time, place and person. No headache. No neck pain. No syncope. No seizures. Dizziness. PSYCHIATRIC: Not anxious. No depression. No suicidal thoughts. No homicidal thoughts. SKIN: No rash. No lesions. No wounds. ENDOCRINE: No unexplained weight loss. No weight gain. HEMATOLOGIC/LYMPHATIC: No anemia. No purpura. No petechiae. No prolonged or excessive bleeding. No palpable lymph nodes. PHYSICAL EXAMINATION: GENERAL: The patient is awake, alert and oriented, sitting in bed in no distress. VITAL SIGNS: Temperature 97.9 F, Pulse 54, Respiratory Rate 18, BP 160/78, Pulse Ox 96% HEENT: Head normocephalic, atraumatic. Eyes: Extraocular muscles are intact. Pupils are equal, round and reactive to light and accommodation. Ears: No lesions. Nose appeared normal. Throat: No exudate or erythema. NECK: Supple. No JVD, no carotid bruit. No lymphadenopathy or thyromegaly. LUNGS: Diminished breath sounds. Clear to auscultation. Percussion note normal. Chest symmetrical. HEART: S1, S2, no S3. No murmurs. No cyanosis or clubbing. No ascites. Pulses: Dorsalis pedis and posterior tibial pulses +1 to +2 both sides. ABDOMEN: Soft. Non-tender. Bowel sounds active. No CVA tenderness. No mass felt. EXTREMITIES: No edema. Full range of motion of all extremities, equal. NEUROLOGIC: No focal deficit. Cranial nerves II through XII are grossly intact. No headache. No double vision. SKIN: Not dry. Intact. Turgor-normal. LYMPHATIC: No palpable lymph nodes/no lymphedema. MUSCULOSKELETAL: Normal joints with no swelling. Muscle tone is normal. LAB REVIEW: 02/08/22 05:12 02/08/22 05:12 02/08/22 05:12: Sodium 132.8 L, Potassium 3.84, Chloride 98.7, Carbon Dioxide 26.9, Anion Gap 11.04, BUN 9.9, Creatinine 0.57 L, Estimated GFR (MDRD) 105.00, BUN/Creatinine Ratio 17.36, Glucose 96.2, Calcium 9.02, Total Bilirubin 0.35, AST 19.6, ALT 12.9, Alkaline Phosphatase 50.9 L, Total Protein 6.76, Albumin 4.04, Globulin 2.72, Albumin/Globulin Ratio 1.48 02/08/22 05:12: WBC 7.01, RBC 4.36, Hgb 13.4, Hct 38.3, MCV 87.8, MCH 30.7, MCHC 35.0, RDW Coeff of Wendi 13.2, Plt Count 277, Immature Gran % (Auto) 0.3, Neut % (Auto) 56.5, Lymph % (Auto) 33.4, [place] % (Auto) 8.6, Eos % (Auto) 0.9, Baso % (Auto) 0.3, Neut # (Auto) 4.0, Lymph # (Auto) 2.3, [place] # (Auto) 0.6, Eos # (Auto) 0.1, Baso # (Auto) 0.0, Immature Gran # (Auto) 0.0 02/07/22 13:18: Urine Color Yellow, Urine Clarity Clear, Urine pH 7.0, Ur Specific [place] 1.020, Urine Protein Negative, Urine Glucose (UA) Negative, Urine Ketones Negative, Urine Blood Negative, Urine Nitrite Negative, Urine Bilirubin Negative, Urine Urobilinogen 0.2, Ur Leukocyte Esterase Negative ASSESSMENT: Please see below. 1. Hypertension 2. Possible TIA 3. Dyslipidemia 4. Heavy smoker 5. Chronic back pain. PLAN: 1. Ativan 1mg HS 2. Losartan 100-12.5 3. Norvasc 5mg PRN QHS if greater than 160 4. Carotid scan today Plan and coordination of the patient's care discussed in the presence of Indoor Landscape Architect and nurse. SCRIBED BY: Laurie SHANNON scribed while in presence of service performed by Dr. Luu/Diane Toro APRN on 02/08/22 ([id number])
--- NOTE | 2022-02-08 11:22 | US ---
EXAM: Carotid ultrasound HISTORY: Transient ischemic attack COMPARISON: None TECHNIQUE: Carotid ultrasound was performed using Duplex imaging with greyscale, color doppler, spec tral doppler imaging performed. FINDINGS: Right carotid: There is atherosclerotic plaque in the common carotid and bulb/internal carotid arter y. Peak systolic velocity measurement in the right internal carotid artery is 1.04 meters per second . End-diastolic velocity measurement in the right internal carotid artery is 0.24 meters per second. Right internal to common carotid artery peak systolic velocity ratio is 1.5. Flow in the right lenny tebral artery is antegrade. Left carotid: There is atherosclerotic plaque in the common carotid and bulb/internal carotid artery . Peak systolic velocity measurement in the left internal carotid artery is 0.64 meters per second. End-diastolic velocity measurement in the left internal carotid artery is 0.20 meters per second. L eft internal to common carotid artery peak systolic velocity ratio measures 1.4. Flow in the left ve rtebral artery is antegrade. IMPRESSION: 1. Right internal carotid: Peak systolic velocity corresponds with mild (less than 50%) stenosis 2. Left internal carotid: Peak systolic velocity corresponds with mild (less than 50%) stenosis
[2022-02-08] MEDS: PRILOSEC PO SCH (12:19)
--- NOTE | 2022-02-08 14:36 | HP ---
DATE OF SERVICE: 02/08/22 HISTORY OF PRESENT ILLNESS: 71 year old white female hospitalized through the emergency room as the patient was watching a ball game for a couple of hours she was not able to grasp what was going on. Also had a headache. She came to the emergency room. The systolic blood pressure was noted to be more than 220. Initial work up was negative with negative CT scan, no acute findings. She did not have any focal neurological sign. The patient's blood pressure has been brought down. She was given Normodyne initially. The patient's blood pressure this morning with 115/62. PAST MEDICAL HISTORY/PAST SURGICAL HISTORY: History of multiple back surgeries Pain stimulator which was taken off, followed by pain management. REVIEW OF SYSTEMS: CONSTITUTIONAL: No night sweats. No fatigue, malaise, lethargy. No fever or chills. HEENT: Eyes: No visual changes. No eye pain. No eye discharge. ENT: No runny nose. No epistaxis. No sinus pain. No sore throat. No odynophagia. No ear pain. No congestion. RESPIRATORY: No cough, no congestion. No hemoptysis. No shortness of breath. CARDIOVASCULAR: No angina symptoms. No CHF symptoms. No atypical chest pain for CAD. No palpitations. No PND. No orthopnea. GASTROINTESTINAL: No abdominal pain. No nausea or vomiting. No diarrhea or constipation. No hematemesis. No hematochezia. GENITOURINARY: No urgency. No frequency. No dysuria. No hematuria. No obstructive symptoms. No discharge. No pain. No significant abnormal bleeding. MUSCULOSKELETAL: No musculoskeletal pain. No joint swelling. No arthritis. NEUROLOGICAL: Mild headache. No neck pain. No syncope. No seizures. Dizziness. PSYCHIATRIC: Not anxious. No depression. No suicidal thoughts. No homicidal thoughts. SKIN: No rash. No lesions. No wounds. ENDOCRINE: No unexplained weight loss. No weight gain. HEMATOLOGIC/LYMPHATIC: No anemia. No purpura. No petechiae. No prolonged or excessive bleeding. No palpable lymph nodes. PERSONAL/FAMILY/SOCIAL HISTORY: Heavy smoker. No alcohol abuse. and lives with the . Does all activity of daily living. Drives car. The patient is a full code. MEDICATIONS: Flonase Coma compound Omeprazole Vitamin B Butalbital acetaminophen caffeine combination 50mg/325/40. Lexapro Xanax Losartan Vitamin D3 Oxycodone. ALLERGIES: Nonsteroidal antiinflammatory Ciprofloxacin Iodinated contrast media Prochlorperazine Sulfamethoxazole Trimethoprim PHYSICAL EXAMINATION: GENERAL: The patient is oriented to time, place and person VITAL SIGNS: Temperature 97.6, pulse 64, respiratory rate 20, blood pressure 115/62 and pulse ox 98%. HEENT: Head normocephalic, atraumatic. Eyes: Extraocular muscles are intact. Pupils are equal, round and reactive to light and accommodation. Ears: No lesions. Nose appeared normal. Throat: No exudate or erythema. NECK: Supple. No JVD, no carotid bruit. No lymphadenopathy or thyromegaly. LUNGS: Decreased breath sounds with mild wheeze. Clear to auscultation. Percussion note normal. Chest symmetrical. HEART: S1, S2, no S3. No murmur. No cyanosis or clubbing. No ascites. Pulses: Dorsalis pedis and posterior tibial pulses +1 to +2 bilaterally. ABDOMEN: Soft. Nontender. Bowel sounds active. No CVA tenderness. No mass felt. EXTREMITIES: No edema. Full range of motion of all extremities, equal. Scars of surgery on the back. NEUROLOGIC: No focal deficit. Cranial nerves II through XII are grossly intact. No headache, no double vision or headache. SKIN: Not dry. Intact. Turgor - normal. LYMPHATIC: No palpable lymph nodes/no lymphedema. MUSCULOSKELETAL: Normal joints with no swelling. Muscle tone is normal. LABS: Hgb 12.4, hct 34, WBC 7,600 normal differential, creatinine 0.4, BUN 9, potassium 3.4, sodium 128, T4 TSH normal. CT scan of the head cerebral cerebellar atrophy otherwise negative. Chest x-ray negative. EKG sinus rhythm, no acute changes. Troponin negative ASSESSMENT: 1. Hypertension 2. Episode of confusion with cognitive dysfunction, rule out TIA 3. Chronic lung disease with history of heavy smoking 4. Multiple back surgeries with DJD of spine 5. Generalized severe DJD, the patient followed by Pain Management. PLAN: 1. Telemetry 2. Carotid scan 3. Echocardiogram this morning showed normal LV contractility, enlarged LA cavity, enlarged RV cavity. Valvular structures normal. 4. Continue monitoring neurological status which seems to be normal so far. 5. Antivert PRN for dizziness 6. The patient explained about the findings on CT scan of the head cerebellar and cerebral atrophy. The patient says that she has had multiple MRI's. Recently she had MRI of the ankle. CONDITION: Stable. TIME SPENT: More than 70 minutes. SUSI
[2022-02-08] MEDS ORDERED: NEURONTIN PO SCH (21:00)
[2022-02-08] MEDS ORDERED: NORVASC PO SCH (21:00)
[2022-02-08] MEDS ORDERED: ATIVAN PO SCH (21:00)
[2022-02-09 05:27] VITALS: TEMP 97.7
[2022-02-09 05:29] LABS: BASOPHILS % (AUTO) 0.4 % (0.0-3.0); EOSINOPHILS # (AUTO) 0.1 K/ul (0.0-0.7); EOSINOPHILS % (AUTO) 1.3 % (0.0-7.0); HEMATOCRIT 37.9 % (37.0-47.0); HEMOGLOBIN 13.1 g/dl (12.0-16.0); IMMATURE GRANULOCYTE % (AUTO) 0.1 % (0.0-5.0); LYMPHOCYTES # (AUTO) 2.2 K/uL (0.60-3.4); LYMPHOCYTES % (AUTO) 32.4 (10.0-50.0); MEAN CORPUSCULAR HEMOGLOBIN 30.7 pg (27.0-31.0); MEAN CORPUSCULAR HGB CONC 34.6 (31.8-35.4); MEAN CORPUSCULAR VOLUME 88.8 fl (81.0-99.0); MONOCYTES # (AUTO) 0.5 K/uL (0.4-2.0); MONOCYTES % (AUTO) 7.7 (0-10); NEUTROPHILS % (AUTO) 58.1 % (42.2-75.2); PLATELET COUNT 262 10^3/uL (140-440); RDW COEFFICIENT OF VARIATION 13.6 % (11.6-14.8); RED BLOOD COUNT 4.27 10^6/ul (4.20-5.40); WHITE BLOOD COUNT 6.85 K/ul (4.6-10.2)
[2022-02-09] MEDS: SOMA PO PRN (05:36)
[2022-02-09] MEDS: OXYCODONE PO PRN (05:36)
[2022-02-09 05:41] LABS: ALANINE AMINOTRANSFERASE 12.2 U/L (0-35); ALBUMIN 3.98 g/dL (3.5-5.0); ALKALINE PHOSPHATASE 48.6 U/L (53-141); ASPARTATE AMINO TRANSFERASE 23.9 U/L (14-36); BILIRUBIN,TOTAL 0.45 mg/dL (0.2-1.3); CALCIUM 9.23 mg/dL (8.4-10.2); CARBON DIOXIDE 29.7 mmol/L (22-30.0); CHLORIDE 101.5 mmol/L (98-107); CREATININE 0.58 mg/dL (0.60-1.30); GLUCOSE 91.4 mg/dL (74-106); POTASSIUM 3.54 mmol/L (3.5-5.1); TOTAL PROTEIN 6.67 g/dL (6.3-8.2)
[2022-02-09] MEDS: XANAX PO PRN (06:12)
[2022-02-09] MEDS ORDERED: PRILOSEC PO SCH (06:30)
[2022-02-09 07:01] VITALS: BP 152/76
[2022-02-09] MEDS: NICODERM 21 MG TD SCH (08:05)
[2022-02-09] MEDS: BALANCED B-100 PO SCH (08:47)
[2022-02-09] MEDS: LEXAPRO PO SCH (08:47)
[2022-02-09] MEDS: COZAAR PO SCH (08:47)
[2022-02-09] MEDS: HYDROCHLOROTHIAZIDE PO SCH (08:47)
[2022-02-09] MEDS ORDERED: NON-FORMULARY MEDICATION (Losartan-Hydrochlorothiazide 100-12.5 mg Tablet) PO SCH (09:00)
[2022-02-09] MEDS ORDERED: NORVASC PO SCH (09:00)
--- NOTE | 2022-02-09 09:20 | PCM.PROG ---
Attending Provider: ATTENDING PROVIDER: Dr. ROSY LUU DATE OF SERVICE: 02/09/22 SUBJECTIVE: This 71 year old /WHITE F was hospitalized 02/07/22 with hypertension urgency, possible TIA. Neurological status is normal and unchanged. CT scan of head was negative. Carotid scan was negative. Up and about. Blood pressure is labile but well controlled. REVIEW OF SYSTEMS: CONSTITUTIONAL: No night sweats. No fatigue, malaise, lethargy. No fever or chills. HEENT: Eyes: No visual changes. No eye pain. No eye discharge. ENT: No runny nose. No epistaxis. No sinus pain. No odynophagia. No congestion. RESPIRATORY: No cough, no congestion. No hemoptysis. No shortness of breath. CARDIOVASCULAR: No angina symptoms. No CHF symptoms. No atypical chest pain for CAD. No palpitations. No orthopnea.. GASTROINTESTINAL: No abdominal pain. No nausea or vomiting. No diarrhea or const ipation. No hematemesis. No hematochezia. GENITOURINARY: No urgency. No frequency. No dysuria. No hematuria. No obstructive symptoms. No discharge. No pain. No significant abnormal bleeding. MUSCULOSKELETAL: No musculoskeletal pain; no joint swelling. NEUROLOGICAL: Awake, alert, oriented to time, place and person. No headache. No neck pain. No syncope. No seizures. No dizziness. PSYCHIATRIC: Not anxious. No depression. No suicidal thoughts. No homicidal thoughts. SKIN: No rash. No lesions. No wounds. ENDOCRINE: No unexplained weight loss. No weight gain. HEMATOLOGIC/LYMPHATIC: No anemia. No purpura. No petechiae. No prolonged or excessive bleeding. No palpable lymph nodes. PHYSICAL EXAMINATION: GENERAL: The patient is awake, alert and oriented, sitting in bed in no distress. VITAL SIGNS: Temperature 97.7 F, Pulse 56, Respiratory Rate 18, BP 152/76, Pulse Ox 98% HEENT: Head normocephalic, atraumatic. Eyes: Extraocular muscles are intact. Pupils are equal, round and reactive to light and accommodation. Ears: No lesions. Nose appeared normal. Throat: No exudate or erythema. NECK: Supple. No JVD, no carotid bruit. No lymphadenopathy or thyromegaly. LUNGS: Clear to auscultation. Percussion note normal. Chest symmetrical. HEART: S1, S2, no S3. No murmurs. No cyanosis or clubbing. No ascites. Pulses: Dorsalis pedis and posterior tibial pulses +1 to +2 both sides. ABDOMEN: Soft. Non-tender. Bowel sounds active. No CVA tenderness. No mass felt. EXTREMITIES: No edema. Full range of motion of all extremities, equal. NEUROLOGIC: No focal deficit. Cranial nerves II through XII are grossly intact. No headache, no double vision or headache. SKIN: Warm and dry. Intact. Turgor-normal. LYMPHATIC: No palpable lymph nodes/no lymphedema. MUSCULOSKELETAL: Normal joints with no swelling. Muscle tone is normal. LAB REVIEW: 02/09/22 05:20 02/09/22 05:20 02/09/22 05:20: Sodium 136.0, Potassium 3.54, Chloride 101.5, Carbon Dioxide 29.7, Anion Gap 8.34, BUN 12.0, Creatinine 0.58 L, Estimated GFR (MDRD) 103.00, BUN/Creatinine Ratio 20.68, Glucose 91.4, Calcium 9.23, Total Bilirubin 0.45, AST 23.9, ALT 12.2, Alkaline Phosphatase 48.6 L, Total Protein 6.67, Albumin 3.98, Globulin 2.69, Albumin/Globulin Ratio 1.47 02/09/22 05:20: WBC 6.85, RBC 4.27, Hgb 13.1, Hct 37.9, MCV 88.8, MCH 30.7, MCHC 34.6, RDW Coeff of Wendi 13.6, Plt Count 262, Immature Gran % (Auto) 0.1, Neut % (Auto) 58.1, Lymph % (Auto) 32.4, [place] % (Auto) 7.7, Eos % (Auto) 1.3, Baso % (Auto) 0.4, Neut # (Auto) 4.0, Lymph # (Auto) 2.2, [place] # (Auto) 0.5, Eos # (Auto) 0.1, Baso # (Auto) 0.0, Immature Gran # (Auto) 0.0 ASSESSMENT: Please see below. 1. Hypertension, fairly well controlled. PLAN: 1. Discharge home 2. Follow up as outpatient 3. Advised to follow same medications 4. Norvasc 5mg at be taken at night 5. Counseling for smoking done, strongly advised to quit smoking 6. CT cerebellar and cerebral atrophy discussed 5. The patient is refusing to take any blood thinners, allergic to nonsteroidal antiinflammatory Plan and coordination of the patient's care discussed in the presence of Section Maintainer and nurse. CONDITION: Stable. SCRIBED BY: Laurie SHANNON scribed while in presence of service performed by Dr. ROSY LUU on 02/09/22 ([id number])
--- NOTE | 2022-02-16 14:56 | PN ---
DATE OF SERVICE: 02/08/22 SUBJECTIVE: The patient was seen and examined with the Nurse Practitioner. The patient is going to have Losartan which is 100mg, Norvasc will be given 5mg at bedtime. The patient's blood pressure is labile. Strongly advised to quit smoking. Neurological examination completely normal. CONDITION: Stable. TIME SPENT: More than 30 minutes. Plan and coordination of the patient's care discussed in the presence of nurse. SUSI
[2022-02-18] MEDS ORDERED: DRISDOL PO SCH (09:00)
--- NOTE | 2022-02-22 14:44 | DS ---
ADMISSION DAY: Level 5 REST OF THEM: Intermediate FINAL DAY: D as in discharge MTDD
--- NOTE | 2022-02-22 14:44 | DS ---
DATE OF SERVICE: 02/09/22 FINAL DIAGNOSIS: 1. Hypertensive urgency 2. Confusion likely factorial combination of headache, medication effect 3. History of hypertension 4. Depression 5. Neuropathy 6. Severe DJD of the spine 7. Generalized arthritis with multiple spinal surgeries. 8. Heavy smoking with chronic lung disease. 9. DJD of the spine followed by Pain Management. DISCHARGE INSTRUCTIONS: Discharge home today. Continue all other home medications a prescribed. Monitor blood pressure at home. Avoid excessive heat. Followup with Dr Mar/Diane Toro NP/Candida Benjamin NP on February 18 at 9am. MEDICATIONS AT DISCHARGE: Soma Omeprazole Lexapro Xanax Oxycodone Gabapentin Losartan as before NEW PRESCRIPTIONS: NORVASC INCREASED TO 5MG AT BEDTIME. DISCONTINUED MEDICATIONS: Amlodipine 2.5mg PO daily DIET INSTRUCTIONS: Regular, drink plenty of fluids ACTIVITY: As tolerated with rest periods as needed. LABS: Hgb 13.1, hct 37, WBC 6,800 normal differential, creatinine 0.5, BUN 12, potassium 3.5. CT scan of the head negative for any acute event. Carotid scan less than 50% occlusive disease. HOSPITAL COURSE: 71 year old white female came to the emergency room with blood pressure 228 had episode where she couldn't think while she was watching baseball game. The patient was alert, somewhat confused according to her. In the emergency room the patient had no neurological deficit. During the stay in the hospital the patient's neurological status remained normal. CT scan for negative for any acute event. She had cerebellar and cerebral atrophy noted. Somewhat out of proportion to her aging process. The patient is strongly advised to quit smoking. Advised to take her medication on regular basis. The patient is being followed by Pain Management. Advised to get followup with it. Side effects of Xanax discussed with addiction potential. The patient's blood pressure is labile. Normal blood pressure ranges discussed 135/85 or under. Echo showed normal LV contractility, LVH with enlarged RV and LA cavities. PFT showed COPD. The patient is instructed to come back in 5-7 days. CONDITION: Stable. TIME SPENT: More than 60 minutes. MTDD
== END 2022-02-09 09:45 | disposition home or self-care (01) | DRG 305 ==
LOC: ED 22:41 → MEDSURG A 02-07 01:04
PROVIDERS: ADMIT Internal Medicine; ATTEND Internal Medicine
DX: I10 Essential (primary) hypertension; Z51.81 Encounter for therapeutic drug level monitoring; R41.89 Other symptoms and signs involving cognitive functions and awareness; M19.90 Unspecified osteoarthritis, unspecified site; G45.9 Transient cerebral ischemic attack, unspecified; J44.9 Chronic obstructive pulmonary disease, unspecified; Z20.822 Contact with and (suspected) exposure to COVID-19; G44.89 Other headache syndrome; I16.1 Hypertensive emergency; Z79.899 Other long term (current) drug therapy; F32.A Depression, unspecified; M51.36 Other intervertebral disc degeneration, lumbar region; E78.5 Hyperlipidemia, unspecified; I51.7 Cardiomegaly; G62.9 Polyneuropathy, unspecified; Z98.890 Other specified postprocedural states; F17.210 Nicotine dependence, cigarettes, uncomplicated

== ENCOUNTER 2025-04-28 08:40 | Observation (INO) ==
[2025-04-28 09:26] LABS: IMMATURE GRANULOCYTE # (AUTO) 0.0 (0.0-1.0); IMMATURE GRANULOCYTE % (AUTO) 0.2 % (0.0-5.0); RDW COEFFICIENT OF VARIATION 12.7 % (11.6-14.8)
--- NOTE | 2025-04-28 09:33 | ED.PDOC ---
General [facility] ED Provider: Dr. DYLON ALCALA DO Chief Complaint: Hypertension Stated Complaint: 74-year-old female presents to the ER concern for elevated blood pressure. She says that is been present since Monday, 3 days ago. On Monday she started to have a headache primarily in the front and behind the right eye so she took her blood pressure which was 220s over 110s. She said that she did have some feelings of indigestion and locates it around the xiphoid process. No other modifying factors and denies any other symptoms then the headache to include but not limited to radiating chest pain, shortness of breath, dizziness, changes in vision. She states that she doubled her losartan/HCTZ dose that did help somewhat but did not resolve her blood pressure issues. She states that her headache persisted throughout the weekend and today it was 215/110s, so she presented to the emergency department. She has been on the losartan combination for about 3 years and before that was on Benicar. She feels like her blood pressure has had fluctuations since being on this new combination medication. Denies any swelling or other constitutional symptom. Medical history reviewed in chart as available Time Seen by Provider: 04/28/25 09:14 Information Source: Patient and Family Primary Care Provider: JOSE CHANDRA APRN Nursing and Triage Documentation Reviewed and Agree: Yes Opioid Naive vs. Tolerant What is Opioid Naive?: *Opioid Naive implies the patient is not already taking opioids or not chronically receiving opioids on a daily basis. *PRN dosing is not "usually" associated with tolerance. *Patients are at higher risk of over-sedation and aspiration. What is Opioid Tolerant?: *Opioid Tolerance implies less than the expected response to an opioid. *Acquired tolerance is defined by the patient taking 60mg of oral morphine daily (or equianalgesic dose of another opioid) for 1 week or more. *Often associated with chronic pain. *May take more than usual dose to achieve desired pain control. Review of Systems Review Of Systems Constitutional: Reports No symptoms All Other Systems: Reviewed and Negative [facility] Medical History (Updated 04/28/25 @ 14:56 by DYLON ALCALA DO) Recent urinary tract infection resolved clinically Z87.440 - Personal history of urinary (tract) infections (ICD-10) Acute pneumonitis J18.9 - Pneumonia, unspecified organism (ICD-10) Hyponatremia E87.1 - Hypo-osmolality and hyponatremia (ICD-10) Wrist fracture, right Dr Keith S62.101A - Fracture of unspecified carpal bone, right wrist, initial encounter for closed fracture (ICD-10) History of contact dermatitis Z87.2 - Personal history of diseases of the skin and subcutaneous tissue (ICD-10) Lumbar back pain with radiculopathy affecting lower extremity M54.16 - Radiculopathy, lumbar region (ICD-10) Spinal stenosis M48.00 - Spinal stenosis, site unspecified (ICD-10) Urinary tract infectious disease N39.0 - URINARY TRACT INFECTION, SITE NOT SPECIFIED (ICD-10) Family History Other Cancer Diabetes Myocardial infarct Social History Smoking and tobacco status: Current every day smoker Tobacco type: cigarettes Smoking packs per day: 1 Alcohol intake: never Substance use type: does not use Special lidia needs: No Agree to transfusion: Yes Adopted: No Caregiver/support person: No Foster care: No Household members: spouse Housing: house Marital status: M Lives independently: Yes Daycare: no daycare Number of children: 2 service: No penitentiary: No Current occupational status: unemployed Current occupational exposures/hazards: No History of recent travel: No Do you think of yourself as: straight/heterosexual Current gender identity: female Seatbelt use: always Helmet use: No Drives intoxicated or rides with intoxicated tilt tray driver: No Water heater temperature set < 120 degrees: Yes Working smoke detector in home: Yes Fire extinguisher in home: Yes Carbon monoxide detector in home: Yes Surgical History History of ankle surgery Z98.890 - Other specified postprocedural states (ICD-10) History of total left hip replacement Dr. Krishan Mar 09/27 Z96.642 - Presence of left artificial hip joint (ICD-10) History of total right hip replacement 2013 Z96.641 - Presence of right artificial hip joint (ICD-10) S/P cervical spinal fusion (04/28/17) Dr. Kat 05/25 Z98.1 - Arthrodesis status (ICD-10) Hx of cervical discectomy (05/20/15) done in [place] Z98.890 - Other specified postprocedural states (ICD-10) History of surgery (10/17/17) Stimulator implanted lower back. Dr. Kat and then removed Z98.890 - Other specified postprocedural states (ICD-10) History of heart surgery SI joint fusion left and right, performed by Dr. Kat 08/2016. Z98.890 - Other specified postprocedural states (ICD-10) Status post cholecystectomy Z90.49 - Acquired absence of other specified parts of digestive tract (ICD- 10) Female Reproductive History Menstrual Hx Hysterectomy: Yes Hx Tubal Ligation: No Physical Exam Physical Exam Appearance: Reports Well-appearing, No pain distress and Well-nourished Eyes: Reports NAM, EOMI and Conjunctiva clear ENT: Reports Nose normal and Oropharynx normal Neck: Supple Respiratory: Reports Airway patent, Breath sounds clear and Respirations nonlabored Cardiovascular: Reports RRR and Pulses normal GI/: Reports Soft and Nontender Musculoskeletal: Reports Normal strength and ROM intact Skin: Reports Warm, Dry and Normal color Neurological: Reports Sensation intact, Motor intact, Alert, Oriented and Other (No focal deficit immediately identified) Psychiatric: Reports Affect appropriate and Mood appropriate Interpretation EKG Interpretation EKG Interpretation By: ED Physician Time of EKG #1: 09:07 Rate: Normal (66) Rhythm: Sinus Ectopy: None Amo: NL ST Segment: Normal Interpretation: Nonischemic EKG Radiology Interpretation Radiology Interpretation By: Radiologist Radiology Results: No acute changes Exam Interpreted: CT Scan Re-Evaluation Re-Evaluation Additional Comments: 74-year-old female presents to the ER with elevated blood pressure. She does have a headache with no focal neurologic deficit readily identified. Low suspicion for CVA, TIA, SAH, ICH, SDH. Suspect the headache is secondary to the blood pressure. Currently denies any chest pain and her symptoms have been going on for approximately 3 days. Will evaluate cardiac enzymes and basic laboratory workup. Will add a ESR with low suspicion for temporal arteritis given the eye pain. Will give a dose of aspirin. Her blood pressure had improved to 168/86. Will check magnesium and consider magnesium for smooth muscle relaxant. Otherwise we will consider other antihypertensives while pending attention to her heart rate which is currently 64. Her last stress test or echocardiogram was at least 5 years ago per her report. Certainly recommend updating this whether inpatient or outpatient. Will review her laboratory workup for further management disposition planning. BNP also added in the case of any evidence of heart failure despite taking the diuretic 1157: The patient's blood pressure has come down significantly. CT of the head is negative. Headache improved. After IV fluid bolus, will consider repeat BMP and p.o. challenge for final disposition 1450: Repeat labs show persistent hyponatremia. This could certainly a contributing factor to her headache which could be a factor in her blood pressure or multiple other variations of into her reactions between systems. Discussed with hospitalist service gracious to accept patient for further stabilization. Vital signs stable, headache resolved Physician Progress Note Physician Progress Note: All EKGs and plain film imaging independently reviewed and interpreted by me unless stated otherwise. CTs interpreted by radiology unless otherwise stated. All pediatric patients are accompanied by parent or legal guardian as primary historian and/or validate patient report unless otherwise stated. Course Course 04/28/25 09:04/28/25 12:55 Orders, Labs, Meds: Lab Review 04/28/25 04/28/25 04/28/25 08:45 09:22 12:55 WBC 6.47 RBC 4.47 Hgb 13.9 Hct 39.0 MCV 87.2 MCH 31.1 H MCHC 35.6 H RDW Coeff of Wendi 12.7 Plt Count 326 Immature Gran % (Auto) 0.2 Neut % (Auto) 74.1 Lymph % (Auto) 18.1 [place] % (Auto) 7.1 Eos % (Auto) 0.3 Baso % (Auto) 0.2 Neut # (Auto) 4.8 Lymph # (Auto) 1.2 [place] # (Auto) 0.5 Eos # (Auto) 0.0 Baso # (Auto) 0.0 Immature Gran # (Auto) 0.0 ESR 7 PT 10.3 INR 0.99 APTT 25.9 Sodium 122.9 L 122.3 L Potassium 3.50 3.45 L Chloride 86.7 L 89.7 L Carbon Dioxide 30.7 H 28.4 Anion Gap 9.00 7.65 BUN 7.8 7.4 Creatinine 0.54 L 0.48 L Estimated GFR (MDRD) 111.00 127.00 BUN/Creatinine Ratio 14.44 15.41 Glucose 105.3 100.8 Calcium 9.43 8.53 Magnesium 1.71 Total Bilirubin 0.90 AST 26.8 ALT 18.2 Alkaline Phosphatase 46.2 L Troponin I < 0.012 NT-Pro-B Natriuret Pep 179 Total Protein 7.45 Albumin 4.47 Globulin 2.98 Albumin/Globulin Ratio 1.50 Urine Color Yellow Urine Clarity Clear Urine pH 8.5 Ur Specific [place] 1.015 Urine Protein 1+ H Urine Glucose (UA) Negative Urine Ketones Negative Urine Blood Negative Urine Nitrite Negative Urine Bilirubin Negative Urine Urobilinogen 0.2 Ur Leukocyte Esterase Trace H Urine Microscopic WBC 2-5 Ur Squamous Epith Cells 5-10 Urine Bacteria 1+ Orders Category Date Time Status ADMIT OBSERVATION [PLACE PATIENT OBSERVATION] .TO ADMISSION 04/28/25 14:33 Active MEDSURG (MONITORED BED) EKG-(ED & IP/OBS ONLY) Stat CARDIO 04/28/25 09:15 Completed ACTIVITY .Early Mobilization for VTE Prevention CARE 04/28/25 14:43 Active INTAKE & OUTPUT Q8HR CARE 04/28/25 14:45 Active TELEMETRY MONITORING TELE CARE 04/28/25 14:33 Active VITAL SIGNS Q4HR CARE 04/28/25 14:45 Active CARDIAC DIET DIETARY 04/28/25 Dinner Ordered IV [ED IV/MEDIPORT/POWERPORT] .ONCE EMERGENCY 04/28/25 09:15 Active BMP [BASIC METABOLIC PANEL] Stat LAB 04/28/25 12:55 Completed BMP [BASIC METABOLIC PANEL] Timed LAB 04/28/25 21:00 Ordered CBC W/ AUTO DIFF DAILY@0600 LAB 04/29/25 06:00 Ordered CBC W/ AUTO DIFF DAILY@0600 LAB 04/30/25 06:00 Ordered CBC W/ AUTO DIFF Stat LAB 04/28/25 09:22 Completed CMP [COMPREHENSIVE METABOLIC PANEL] DAILY@0600 LAB 04/29/25 06:00 Ordered CMP [COMPREHENSIVE METABOLIC PANEL] DAILY@0600 LAB 04/30/25 06:00 Ordered CMP [COMPREHENSIVE METABOLIC PANEL] Stat LAB 04/28/25 09:22 Completed ED PROBNP [NT-PROBNP(ED)] Stat LAB 04/28/25 09:22 Completed ESR Stat LAB 04/28/25 09:22 Completed MAGNESIUM Stat LAB 04/28/25 09:22 Completed OSMOLALITY Routine LAB 04/28/25 Ordered OSMOLALITY, URINE Routine LAB 04/28/25 Ordered PT WITH INR Stat LAB 04/28/25 09:22 Completed PTT [PARTIAL THROMBOPLASTIN TIME] Stat LAB 04/28/25 09:22 Completed SODIUM,URINE Routine LAB 04/28/25 09:45 Received TROPONIN I Stat LAB 04/28/25 09:22 Completed URIC ACID Routine LAB 04/28/25 09:45 Received URINALYSIS C & S IF INDICATED Stat LAB 04/28/25 08:45 Completed URINE CULTURE Stat LAB 04/28/25 08:45 Received 0.9 % Sodium Chloride [Saline Flush] Meds 04/28/25 09:14 Active 1 syr IVF PRN PRN Acetaminophen [Tylenol] Meds 04/28/25 14:43 Active 650 mg PO Q4H PRN Aspirin [Aspirin Chewable] Meds 04/28/25 09:14 Discontinued 324 mg PO ONCE STA Clonidine HCl [Catapres] Meds 04/28/25 10:32 Discontinued 0.1 mg PO ONCE ONE Diphenhydramine Inj [Benadryl] Meds 04/28/25 10:52 Discontinued 25 mg IVP ONCE STA Ketorolac Tromethamine [Toradol] Meds 04/28/25 10:52 Discontinued 30 mg IVP ONCE STA Magnesium Sulfate [Magnesium Sulfate 1 gm/2 ml Vial] Meds 04/28/25 10:17 Discontinued 1 gm IVP ONCE ONE Prochlorperazine Edisylate [Compazine] Meds 04/28/25 10:58 Discontinued 10 mg .ROUTE .STK-MED ONE Prochlorperazine Edisylate [Compazine] 10 mg Meds 04/28/25 10:52 Discontinued 0.9 % Sodium Chloride [Sodium Chloride] 50 ml IV ONCE Sodium Chloride 0.9% [Sodium Chloride] 1,000 ml Meds 04/28/25 15:00 Active IV 50 mls/hr Sodium Chloride 0.9% [Sodium Chloride] 1,000 ml Meds 04/28/25 10:17 Discontinued IV BOLUS CHEST, 1V AP ONLY Stat RADS 04/28/25 09:[address] HEAD W/O CONTRAST Stat RADS 04/28/25 10:53 Completed Medications Generic Name Dose Route Start Last Admin Trade Name Freq PRN Reason Stop Dose Admin Acetaminophen 650 mg 04/28/25 14:43 Acetaminophen 325 Mg Tablet PO Q4H PRN Mild Pain Sodium Chloride 1,000 mls @ 50 mls/hr 04/28/25 15:00 Sodium Chloride IV .Q20H ALEKSANDRA Sodium Chloride 1 syr 04/28/25 09:14 04/28/25 11:07 0.9% Sodium Chloride 10 Ml Disp.Syrin IVF 1 syr PRN PRN Administration To flush IV Discontinued Medications Generic Name Dose Route Start Last Admin Trade Name Freq PRN Reason Stop Dose Admin Aspirin 324 mg 04/28/25 09:14 04/28/25 09:36 Aspirin 81 Mg Tab.Chew PO 04/28/25 09:15 324 mg ONCE STA Administration Clonidine 0.1 mg 04/28/25 10:32 04/28/25 10:39 Clonidine Hcl 0.1 Mg Tablet PO 04/28/25 10:33 0.1 mg ONCE ONE Administration Diphenhydramine HCl 25 mg 04/28/25 10:52 04/28/25 11:05 Diphenhydramine Inj 50 Mg/Ml Vial IVP 04/28/25 10:53 25 mg ONCE STA Administration Sodium Chloride 1,000 mls @ 1,000 mls/hr 04/28/25 10:17 04/28/25 12:21 Sodium Chloride IV 04/28/25 11:16 Infused BOLUS ONE Infusion Prochlorperazine Edisylate 10 52 mls @ 100 mls/hr 04/28/25 10:52 04/28/25 11:08 mg/ Sodium Chloride IV 04/28/25 11:23 100 mls/hr ONCE STA Administration Ketorolac Tromethamine 30 mg 04/28/25 10:52 04/28/25 11:06 Ketorolac Tromethamine 30 Mg/Ml Vial IVP 04/28/25 10:53 30 mg ONCE STA Administration Magnesium Sulfate 1 gm 04/28/25 10:17 04/28/25 10:32 Magnesium Sulfate Vial 1 Gm/2 Ml Vial IVP 04/28/25 10:18 1 gm ONCE ONE Administration Vital Signs: Temp Pulse Resp BP Pulse Ox 04/28/25 08:48 97.3 F L 88 16 158/100 H 96 RYAN Risk Score RYAN Risk Score: Risk Score Odds of by 30D 0 0.1 (0.1-0.2) 1 0.3 (0.2-0.3) 2 0.4 (0.3-0.5) 3 0.7 (0.6-0.9) 4 1.2 (1.0-1.5) 5 2.2 (1.9-2.6) 6 3.0 (2.5-3.6) 7 4.8 (3.8-6.1) Discharge Plan Discharge Patient Disposition: PLACED OBSERVATION Discharge Problem: Hypertension, Headache, Acute hyponatremia Did you review [place] [employer] TECHNICIAN for ALL controlled substances?: Not Applicable ED Provider: DYLON ALCALA Condition: Stable
[2025-04-28] MEDS: ASPIRIN CHEWABLE PO STA (09:36)
[2025-04-28 09:38] LABS: CREATININE 0.54 mg/dL (0.60-1.30)
[2025-04-28 09:42] LABS: INR 0.99 SI (0.0-3.9)
[2025-04-28 10:05] LABS: GLUCOSE, URINE (UA) Negative (NEGATIVE); LEUKOCYTE ESTERASE ,URINE Trace (NEGATIVE); URINE, BLOOD Negative (NEGATIVE)
[2025-04-28 10:13] LABS: ERYTHROCYTE SEDIMENTATION RATE 7 mm/hr (0-20)
[2025-04-28] MEDS ORDERED: NORVASC PO STA (10:17)
--- NOTE | 2025-04-28 10:17 | DI ---
EXAM: SINGLE-VIEW CHEST HISTORY: Chest pain COMPARISON: Single-view chest 03/05/2022 FINDINGS: / impression: The cardiomediastinal silhouette is stable.. There are benign granulomatous changes. Patchy density noted at the right lung base. There is no pleural effusion. Fusion changes lower cervical spine.
[2025-04-28] MEDS: SODIUM CHLORIDE 1,000 ML IV ONE (10:31)
[2025-04-28] MEDS: MAGNESIUM SULFATE 1 GM/2 ML VIAL IVP ONE (10:32)
[2025-04-28] MEDS: CATAPRES PO ONE (10:39)
[2025-04-28] MEDS: BENADRYL IVP STA (11:05)
[2025-04-28] MEDS: TORADOL IVP STA (11:06)
[2025-04-28] MEDS: COMPAZINE 10 MG in SODIUM CHLORIDE 50 ML IV STA (11:08)
[2025-04-28] MEDS: COMPAZINE ONE (11:11)
--- NOTE | 2025-04-28 11:54 | CT ---
EXAM: CT SCAN OF THE HEAD WITHOUT CONTRAST HISTORY: Headaches, hypertension TECHNIQUE: Imaging of the head was performed without contrast. 5 mm thin axial images and coronal and sagittal images were obtained. FINDINGS: The hart-white interface appears normal. No acute hemorrhages are seen. There are no extraaxial collections. The basal cisterns are patent. The paranasal sinuses and mastoid air cells are clear. IMPRESSION: No acute intracranial abnormalities are seen. All CT scans are performed using dose optimization techniques as appropriate to the performed exam and include at least one of the following: Automated exposure control, adjustment of the mA and/or kV according to size, and the use of iterative reconstruction technique.
[2025-04-28 13:11] LABS: CREATININE 0.48 mg/dL (0.60-1.30)
[2025-04-28] MEDS ORDERED: TYLENOL PO PRN (14:43)
[2025-04-28 15:15] LABS: OSMOLALITY 254.0 mOsm/kg (275-295)
[2025-04-28] MEDS ORDERED: HYDRALAZINE HCL IVP PRN (15:57)
[2025-04-28] MEDS ORDERED: FLONASE NAS PRN (15:58)
[2025-04-28] MEDS ORDERED: ZOFRAN ODT PO PRN (15:58)
[2025-04-28] MEDS ORDERED: VENTOLIN HFA IH PRN (15:58)
--- NOTE | 2025-04-28 16:02 | PCM ---
Date of Service Date Seen by Provider: 04/28/25 Time Seen by Provider: 15:50 Admit Day/Time Admission Date: 04/28/25 Admission Time: 14:30 Reason for Admission Chief Complaint: HTN URGENCY,[place], HYPONATREMIA Hospital Provider Hospital Provider: ALPHONSO MENENDEZ, [facility] [place] [facility] Care Physician Primary Care Physician: JOSE CHANDRA APRN History of Present Illness History of Present Illness: 74 yo female with pmh of chronic hyponatremia, COPD, HTN, chronic pain, and GERD presented to the ER with complaints of headache and high blood pressure. States SBP has been running in 200s intermittently since Monday and she has not felt well. Took 2 of her losartan/HCTZ on monday and monday and has continued to feel worse. BP improved mildly but then came back up into the 230s today. Denies any vision changes, chest pain, sob, or other symptoms. Does report dizziness/lightheadedness upon standing. Denies any vomiting or diarrhea. Found to have sodium of 122 and BP was 158/100 on arrival. Per ER provider systolic was up into the 180s-190s. She was given compazine, toradol, magnesium, clonidine, and 1L of NS. Repeat BMP completed and sodium was unchanged. Admitted to med/surg observation. Case Discussed With Case Discussed With: Patient's case was discussed with the ER Physicians, Dr. Malik. [facility] Medical History Recent urinary tract infection resolved clinically Z87.440 - Personal history of urinary (tract) infections (ICD-10) Acute pneumonitis J18.9 - Pneumonia, unspecified organism (ICD-10) Hyponatremia E87.1 - Hypo-osmolality and hyponatremia (ICD-10) Wrist fracture, right Dr Keith S62.101A - Fracture of unspecified carpal bone, right wrist, initial encounter for closed fracture (ICD-10) History of contact dermatitis Z87.2 - Personal history of diseases of the skin and subcutaneous tissue (ICD-10) Lumbar back pain with radiculopathy affecting lower extremity M54.16 - Radiculopathy, lumbar region (ICD-10) Spinal stenosis M48.00 - Spinal stenosis, site unspecified (ICD-10) Urinary tract infectious disease N39.0 - URINARY TRACT INFECTION, SITE NOT SPECIFIED (ICD-10) Surgical History History of ankle surgery Z98.890 - Other specified postprocedural states (ICD-10) History of total left hip replacement Dr. Krishan Mar 09/27 Z96.642 - Presence of left artificial hip joint (ICD-10) History of total right hip replacement 2013 Z96.641 - Presence of right artificial hip joint (ICD-10) S/P cervical spinal fusion (04/28/17) Dr. aKt 05/25 Z98.1 - Arthrodesis status (ICD-10) Hx of cervical discectomy (05/20/15) done in [place] Z98.890 - Other specified postprocedural states (ICD-10) History of surgery (10/17/17) Stimulator implanted lower back. Dr. Kat and then removed Z98.890 - Other specified postprocedural states (ICD-10) History of heart surgery SI joint fusion left and right, performed by Dr. Kat 08/2016. Z98.890 - Other specified postprocedural states (ICD-10) Status post cholecystectomy Z90.49 - Acquired absence of other specified parts of digestive tract (ICD- 10) Family History Other Cancer Diabetes Myocardial infarct Social History Smoking and tobacco status: Current every day smoker Tobacco type: cigarettes Smoking packs per day: 1 Alcohol intake: never Substance use type: does not use Special lidia needs: No Agree to transfusion: Yes Adopted: No Caregiver/support person: No Foster care: No Household members: spouse Housing: house Marital status: M Lives independently: Yes Daycare: no daycare Number of children: 2 service: No longterm: No Current occupational status: unemployed Current occupational exposures/hazards: No History of recent travel: No Do you think of yourself as: straight/heterosexual Current gender identity: female Seatbelt use: always Helmet use: No Drives intoxicated or rides with intoxicated bobtail driver: No Water heater temperature set < 120 degrees: Yes Working smoke detector in home: Yes Fire extinguisher in home: Yes Carbon monoxide detector in home: Yes Allergies Allergies Allergy/AdvReac Type Severity Reaction Status Date / Time NSAIDS (Non-Steroidal AdvReac Severe Abdominal Verified 04/28/25 08:53 Anti-Inflamma Pain nitrofurantoin (From AdvReac Intermediate Nausea Verified 04/28/25 08:53 Macrobid) ciprofloxacin AdvReac Unknown Unknown Verified 04/28/25 08:53 Iodinated Contrast Media AdvReac Unknown Unknown Verified 04/28/25 08:53 (Iodinated Contrast- Oral and IV Dye) prochlorperazine AdvReac Unknown Unknown Verified 04/28/25 08:53 rosuvastatin (From Crestor) AdvReac Unknown Unknown Verified 04/28/25 08:53 sulfamethoxazole (From AdvReac Unknown Unknown Verified 04/28/25 08:53 Bactrim) trimethoprim (From Bactrim) AdvReac Unknown Unknown Verified 04/28/25 08:53 Current Medications Home Medications Acetaminophen (Acetaminophen 325 Mg Tablet) 650 mg PO Q4H PRN PRN Reason: Mild Pain Albuterol Sulfate (Albuterol Sulfate 8 Gm Inhaler) 1 puff IH Q2-6H PRN PRN Reason: Wheezing Alprazolam (Alprazolam 0.5 Mg Tablet) 0.5 mg PO DAILY [facility] Amlodipine Besylate (Amlodipine Besylate 5 Mg Tablet) 2.5 mg PO 2XD ALEKSANDRA Ascorbic Acid (Ascorbic Acid 500 Mg Tablet) 500 mg PO DAILY [facility] Carisoprodol (Carisoprodol 350 Mg Tablet) 350 mg PO TID PRN PRN Reason: Spasms Docusate Sodium (Docusate Sodium 100 Mg Capsule) 100 mg PO EVERY OTHER DAY [facility] Escitalopram Oxalate (Escitalopram Oxalate 10 Mg Tablet) 10 mg PO DAILY [facility] Fluticasone Propionate (Fluticasone Propionate 16 Gm Nasal [place]) 2 spray MIKAL DAILY PRN PRN Reason: Nasal Congestion Hydralazine HCl (Hydralazine Hcl 20 Mg/Ml Sdv) 10 mg IVP Q6H PRN PRN Reason: Hypertension Sodium Chloride (Sodium Chloride) 1,000 mls @ 50 mls/hr IV .Q20H [facility] Losartan Potassium (Losartan Potassium 100 Mg Tablet) 100 mg PO DAILY [facility] Nicotine (Nicotine 21 Mg Patch.Td24) 1 patch TD DAILY [facility] Non-Formulary Medication (Naloxegol [Movantik]) 25 mg PO DAILY ALEKSANDRA Non-Formulary Medication (Yglrhlwszx-Uedqvban-Tjtdgoktfj [Breztri Aerosphere]) 2 inh IH BID ALEKSANDRA Ondansetron HCl (Ondansetron Hcl 4 Mg Tab.Rapdis) 4 mg PO Q6H PRN PRN Reason: Nausea / Vomiting Oxybutynin Chloride (Oxybutynin Chloride 5 Mg Tab.Er.24) 10 mg PO DAILY PRN PRN Reason: INCREASED URINATION Oxycodone HCl (Oxycodone Hcl 5 Mg Tablet) 10 mg PO Q4H PRN PRN Reason: MODERATE PAIN Pantoprazole Sodium (Pantoprazole Sodium 40 Mg Tablet.Dr) 40 mg PO BIDAC2 ALEKSANDRA Potassium Chloride (Potassium Chloride 20 Meq Tab) 20 meq PO BIDWM2 ALEKSANDRA Sodium Chloride (0.9% Sodium Chloride 10 Ml Disp.Syrin) 1 syr IVF PRN PRN PRN Reason: To flush IV Last Admin: 04/28/25 11:07 Dose: 1 syr Zolpidem Tartrate (Zolpidem Tartrate 5 Mg Tablet) 5 mg PO BEDTIME PRN PRN Reason: Insomnia mecobalamin (vitamin B12) 1,000 mcg chewable tablet (B12 Active) 1,000 mcg PO QDAY 01/27/23 [History Confirmed 04/28/25] docusate sodium 100 mg capsule (Stool Softener) 100 mg PO Q OTHER DAY 07/06/23 [History Confirmed 04/28/25] blood sugar diagnostic (Blood Glucose Test strips) #100 ea 10/19/23 [Rx Confirmed 04/28/25] blood-glucose meter #1 ea 10/19/23 [Rx Confirmed 04/28/25] lancets 28 gauge (Comfort EZ Lancets) #100 ea 10/19/23 [Rx Confirmed 04/28/25] ascorbate calcium (vitamin C) 500 mg tablet 500 mg PO QDAY #90 tabs 04/29/24 [Rx Confirmed 04/28/25] budesonide 160 mcg-glycopyr 9 mcg-formot 4.8 mcg/actuation HFA inhaler (Breztri Aerosphere) 2 inh inhalation BID #10.7 grams 05/09/24 [Rx Confirmed 04/28/25] fluticasone propionate 50 mcg/actuation nasal spray,suspension 2 spray intranasal DAILY PRN Nasal Congestion #16 grams 05/09/24 [Rx Confirmed 04/28/25] potassium chloride 20 mEq tablet,extended release 20 meq PO BID #10 tabs 05/09/24 [Rx Confirmed 04/28/25] alprazolam 0.5 mg tablet (Xanax) 0.5 mg PO QDAY #30 tabs 07/01/24 [Rx Confirmed 04/28/25] zolpidem 5 mg tablet (Ambien) 5 mg PO QHS PRN insomnia #7 tabs 07/01/24 [Rx Confirmed 04/28/25] pantoprazole 40 mg tablet,delayed release (Protonix) 40 mg PO BID #180 tabs 08/21/24 [Rx Confirmed 04/28/25] epinephrine 0.3 mg/0.3 mL injection, auto-injector (EpiPen 2-Jacinto) 0.3 mg (0.3 mL) IM Q5-15M PRN anaphylaxis #2 ea 01/20/25 [Rx Confirmed 04/28/25] losartan 100 mg-hydrochlorothiazide 12.5 mg tablet 1 tab PO DAILY #90 tabs 01/20/25 [Rx Confirmed 04/28/25] amlodipine 2.5 mg tablet 2.5 mg PO 2XD #180 tabs 01/27/25 [Rx Confirmed 04/28/25] naloxegol 25 mg tablet (Movantik) 25 mg PO DAILY #30 tabs 02/26/25 [Rx Confirmed 04/28/25] ergocalciferol (vitamin D2) 1,250 mcg (50,000 unit) capsule (Vitamin D2) 1,250 mcg PO WEEKLY #12 caps 03/11/25 [Rx Confirmed 04/28/25] ondansetron 4 mg disintegrating tablet 4 mg PO Q6H PRN nausea and vomiting #15 tabs 03/11/25 [Rx Confirmed 04/28/25] albuterol sulfate 90 mcg/actuation aerosol inhaler 1 inh inhalation Q2-6H #8.5 grams 03/25/25 [Rx Confirmed 04/28/25] carisoprodol 350 mg tablet (Soma) 350 mg PO TID PRN Spasms #90 tabs 03/25/25 [Rx Confirmed 04/28/25] escitalopram oxalate 10 mg tablet 10 mg PO DAILY #90 tabs 03/25/25 [Rx Confirmed 04/28/25] oxycodone 10 mg tablet 10 mg PO Q4H #180 tabs 04/02/25 [Rx Confirmed 04/28/25] oxybutynin chloride 10 mg tablet,extended release 24 hr 10 mg PO QDAY PRN in creased urination 04/28/25 [History Confirmed 04/28/25] Opioid Naive vs. Tolerant Does Patient Take Opioids?: Yes Is Patient Opioid Naive?: No What is Opioid Naive?: *Opioid Naive implies the patient is not already taking opioids or not chronically receiving opioids on a daily basis. *PRN dosing is not "usually" associated with tolerance. *Patients are at higher risk of over-sedation and aspiration. Is Patient Opioid Tolerant?: No What is Opioid Tolerant?: *Opioid Tolerance implies less than the expected response to an opioid. *Acquired tolerance is defined by the patient taking 60mg of oral morphine daily (or equianalgesic dose of another opioid) for 1 week or more. *Often associated with chronic pain. *May take more than usual dose to achieve desired pain control. Review of Systems Constitutional: Reports Weakness; Denies Fever, Fatigue or Chills Head: Reports Normocephalic Eyes: Reports No symptoms; Denies Blurred vision, Double-vision or Vision Changes Ears: Reports No symptoms Nose: Reports No symptoms Mouth: Reports No symptoms Throat: Reports No symptoms Cardiovascular: Reports No symptoms; Denies Chest pain, Edema or Palpitations Respiratory: Reports No symptoms; Denies Shortness of air Gastrointestinal: Reports No symptoms; Denies Vomiting or Diarrhea Genitourinary: Reports No Symptoms Musculoskeletal: Reports No symptoms Endocrine: Reports No symptoms Hematology: Reports No symptoms Immunology: Reports No symptoms Neurological: Reports Headache and Dizziness Psychiatric: Reports No symptoms Physical examination Most Recent Vital Signs: Most Recent Vital Signs Temperature 97.3 F L 04/28/25 08:48 Temperature Source Infrared 04/28/25 08:48 Pulse Rate 88 04/28/25 08:48 Respiratory Rate 16 04/28/25 08:48 Blood Pressure 158/100 H 04/28/25 08:48 O2 Sat by Pulse Oximetry 96 04/28/25 08:48 Height 5 ft 04/28/25 08:48 Weight 59.6 kg 04/28/25 08:48 Telemetry Heart Rate 56 L 02/09/22 07:00 Appearance: Positive No Apparent Distress and Alert and Oriented x3 Skin: Positive Warm and Good Turgor HEENT: Positive Normocephalic and PERRLA Neck: Positive Supple and Midline Trachea Chest/Lungs: Positive Symmetrical With Equal Breath Sounds, Clear to Auscultation Bilaterally and Good Air Movement all 4 Lung Begum; Negative Rales, Rhonci or Wheezes Heart: Positive RRR, Pulses Normal, No S3 Auscultated and No S4 Auscultated GI/: Positive Soft, Nontender, Bowel Sounds Normal and No Distention Musculoskeletal: Positive Not Examined Extremities: Positive Intact Peripheral Pulses, Stable Joints Without Laxity and Good ROM in All Joints Neurological: Positive Sensation Intact, Motor intact, Reflexes Intact, Alert, Oriented and Muscle Strength 5/5 in Upper and Lower Extremities Bilaterally Labs This Visit Labs This Visit: Labs This Visit 04/28/25 04/28/25 04/28/25 08:45 09:22 09:45 WBC 6.47 RBC 4.47 Hgb 13.9 Hct 39.0 MCV 87.2 MCH 31.1 H MCHC 35.6 H RDW Coeff of Wendi 12.7 Plt Count 326 Immature Gran % (Auto) 0.2 Neut % (Auto) 74.1 Lymph % (Auto) 18.1 Wright % (Auto) 7.1 Eos % (Auto) 0.3 Baso % (Auto) 0.2 Neut # (Auto) 4.8 Lymph # (Auto) 1.2 Wright # (Auto) 0.5 Eos # (Auto) 0.0 Baso # (Auto) 0.0 Immature Gran # (Auto) 0.0 ESR 7 PT 10.3 INR 0.99 APTT 25.9 Sodium 122.9 L Potassium 3.50 Chloride 86.7 L Carbon Dioxide 30.7 H Anion Gap 9.00 BUN 7.8 Creatinine 0.54 L Estimated GFR (MDRD) 111.00 BUN/Creatinine Ratio 14.44 Glucose 105.3 Serum Osmolality 254.0 L Uric Acid 1.33 L Calcium 9.43 Magnesium 1.71 Total Bilirubin 0.90 AST 26.8 ALT 18.2 Alkaline Phosphatase 46.2 L Troponin I < 0.012 NT-Pro-B Natriuret Pep 179 Total Protein 7.45 Albumin 4.47 Globulin 2.98 Albumin/Globulin Ratio 1.50 Urine Color Yellow Urine Clarity Clear Urine pH 8.5 Ur Specific [place] 1.015 Urine Protein 1+ H Urine Glucose (UA) Negative Urine Ketones Negative Urine Blood Negative Urine Nitrite Negative Urine Bilirubin Negative Urine Urobilinogen 0.2 Ur Leukocyte Esterase Trace H Urine Microscopic WBC 2-5 Ur Squamous Epith Cells 5-10 Urine Bacteria 1+ 04/28/25 12:55 WBC RBC Hgb Hct MCV MCH MCHC RDW Coeff of Wendi Plt Count Immature Gran % (Auto) Neut % (Auto) Lymph % (Auto) Wright % (Auto) Eos % (Auto) Baso % (Auto) Neut # (Auto) Lymph # (Auto) Wright # (Auto) Eos # (Auto) Baso # (Auto) Immature Gran # (Auto) ESR PT INR APTT Sodium 122.3 L Potassium 3.45 L Chloride 89.7 L Carbon Dioxide 28.4 Anion Gap 7.65 BUN 7.4 Creatinine 0.48 L Estimated GFR (MDRD) 127.00 BUN/Creatinine Ratio 15.41 Glucose 100.8 Serum Osmolality Uric Acid Calcium 8.53 Magnesium Total Bilirubin AST ALT Alkaline Phosphatase Troponin I NT-Pro-B Natriuret Pep Total Protein Albumin Globulin Albumin/Globulin Ratio Urine Color Urine Clarity Urine pH Ur Specific [place] Urine Protein Urine Glucose (UA) Urine Ketones Urine Blood Urine Nitrite Urine Bilirubin Urine Urobilinogen Ur Leukocyte Esterase Urine Microscopic WBC Ur Squamous Epith Cells Urine Bacteria Imaging Imaging: EXAM: CT SCAN OF THE HEAD WITHOUT CONTRAST HISTORY: Headaches, hypertension TECHNIQUE: Imaging of the head was performed without contrast. 5 mm thin axial images and coronal and sagittal images were obtained. FINDINGS: The hart-white interface appears normal. No acute hemorrhages are seen. There are no extraaxial collections. The basal cisterns are patent. The paranasal sinuses and mastoid air cells are clear. IMPRESSION: No acute intracranial abnormalities are seen. EXAM: SINGLE-VIEW CHEST HISTORY: Chest pain COMPARISON: Single-view chest 03/05/2022 FINDINGS: / impression: The cardiomediastinal silhouette is stable.. There are benign granulomatous changes. Patchy density noted at the right lung base. There is no pleural effusion. Fusion changes lower cervical spine Review Statement Review Statement: I have independently reviewed and interpreted the labs/EKGs/imaging that were ordered by the ER provider. I have reviewed all outside records that are available currently in our EMR including imaging/notes/labs from previous visits. Plan Plan: 1. Hypertensive Urgency - holding HCTZ due to hyponatremia, resume home medications and will make adjustments prn, hydralazine 10 mg Q6H prn for SBP>170 and DBP>100 2. Acute on Chronic Hyponatremia - osmolalities obtained, baseline 130-132 per chart, hold HCTZ, NS@50mL/hr due to risk of overload, will repeat BMP Q4H and reassess if need to start 3%, seizure precautions 3. COPD - not in exacerbation, continue home medications 4. GERD - chronic, continue home medications 5. Chronic pain - continue home medications DVT Prophylaxis: Ambulation Time Spent: Greater than 80 minutes spent with patient, 50% of the time spent with this patient was devoted to counseling and coordination of care. [facility] Plannin minutes spent discussing advance care planning. Smoking Cessation: 3-10 minutes spent discussing smoking cessation. Disposition: Admit to: Med/Surg Observation Discussed Plan of Care with Dr. Marissa Mar. Medications Medication Orders: Medications Ordered Category Date Time Status 0.9 % Sodium Chloride [Saline Flush] Meds 04/28/25 09:14 Active 1 syr IVF PRN PRN Acetaminophen [Tylenol] Meds 04/28/25 14:43 Active 650 mg PO Q4H PRN Albuterol Sulfate [Ventolin Hfa] Meds 04/28/25 15:58 Ordered DOSE puff IH Q2-6H PRN WHEEZING Wheezing Alprazolam [Xanax] Meds 04/28/25 16:00 Ordered 0.5 mg PO QDAY Amlodipine Besylate [Norvasc] Meds 04/28/25 21:00 Ordered 2.5 mg PO 2XD Carisoprodol [Soma] Meds 04/28/25 15:58 Ordered 350 mg PO TID PRN SPA Spasms Docusate Sodium [Colace] Meds 04/28/25 16:00 Ordered 100 mg PO Q OTHER DAY Escitalopram Oxalate [Lexapro] Meds 04/29/25 09:00 Ordered 10 mg PO DAILY Fluticasone Propionate [Flonase] Meds 04/28/25 15:58 Ordered 2 spray MIKAL DAILY PRN NC Nasal Congestion Hydralazine HCl Meds 04/28/25 15:57 Active 10 mg IVP Q6H PRN Losartan Potassium [Cozaar] Meds 04/29/25 09:00 Ordered 100 mg PO DAILY Ondansetron [Zofran Odt] Meds 04/28/25 15:58 Ordered 4 mg PO Q6H PRN N/V Nausea / Vomiting Oxybutynin Chloride [Ditropan Xl] Meds 04/28/25 15:58 Ordered 10 mg PO QDAY PRN increased urination increased urination Oxycodone HCl [Oxycodone] Meds 04/28/25 15:58 Ordered 10 mg PO Q4H PRN MODPAIN Moderate Pain Pantoprazole Sodium [Protonix] Meds 04/28/25 21:00 Ordered 40 mg PO BID Potassium Chloride [K-Dur] Meds 04/28/25 21:00 Ordered 20 meq PO BID Sodium Chloride 0.9% [Sodium Chloride] 1,000 ml Meds 04/28/25 15:00 Active IV 50 mls/hr Zolpidem Tartrate [Ambien] Meds 04/28/25 15:58 Ordered 5 mg PO QHS PRN PAIN Pain ascorbate calcium (vitamin C) Meds 04/28/25 16:00 Ordered 500 mg PO QDAY kopwetyfrf-yvgfwzcu-loqzcldqwq [Breztri Aerosphere] Meds 04/28/25 21:00 Ordered 2 inh IH BID naloxegol [Movantik] Meds 04/29/25 09:00 Ordered 25 mg PO DAILY
[2025-04-28 16:12] VITALS: BMI 25.4
[2025-04-28] MEDS: OXYCODONE PO PRN (17:20)
[2025-04-28] MEDS: PROTONIX PO SCH (17:21)
[2025-04-28] MEDS: K-DUR PO SCH (17:22)
[2025-04-28] MEDS: NICODERM 21 MG TD SCH (17:24)
[2025-04-28] MEDS: SODIUM CHLORIDE 1,000 ML IV SCH (17:29)
[2025-04-28] MEDS: SOMA PO PRN (20:45)
[2025-04-28] MEDS: NORVASC PO SCH (20:46)
[2025-04-28] MEDS: SYMBICORT 160-4.5 MCG INHALER IH SCH (20:47)
[2025-04-28 20:50] LABS: CREATININE 0.57 mg/dL (0.60-1.30)
[2025-04-28] MEDS ORDERED: NON-FORMULARY MEDICATION (Budesonide-Glycopyr-Formoterol [Breztri Aerosphere] 160-9-4.8 mc IH SCH (21:00)
[2025-04-28] MEDS: AMBIEN PO PRN (21:21)
[2025-04-29 05:36] LABS: IMMATURE GRANULOCYTE # (AUTO) 0.0 (0.0-1.0); IMMATURE GRANULOCYTE % (AUTO) 0.3 % (0.0-5.0); RDW COEFFICIENT OF VARIATION 12.7 % (11.6-14.8)
[2025-04-29 05:51] LABS: CREATININE 0.48 mg/dL (0.60-1.30)
[2025-04-29] MEDS: XANAX PO SCH (08:01)
[2025-04-29] MEDS: LEXAPRO PO SCH (08:02)
[2025-04-29] MEDS: VITAMIN C PO SCH (08:02)
[2025-04-29] MEDS: COZAAR PO SCH (08:02)
[2025-04-29] MEDS: SPIRIVA IH SCH (08:05)
[2025-04-29] MEDS ORDERED: DITROPAN XL PO PRN (09:00)
[2025-04-29] MEDS: K-DUR PO ONE (09:29)
[2025-04-29] MEDS: SODIUM CHLORIDE 3% 500 ML IV SCH (09:30)
[2025-04-29 12:33] LABS: CREATININE 0.48 mg/dL (0.60-1.30)
[2025-04-29 14:27] VITALS: TEMP 97.9
[2025-04-29 16:21] LABS: CREATININE 0.55 mg/dL (0.60-1.30)
[2025-04-29 17:57] VITALS: BP 151/60; PULSE 74; RESP 18
[2025-04-29 20:27] LABS: CREATININE 0.46 mg/dL (0.60-1.30)
[2025-04-29] MEDS ORDERED: COZAAR PO ONE (20:45)
--- NOTE | 2025-04-29 20:47 | DCSUM ---
Admission Date Admission Date: 04/28/25 Discharge Date Discharge Date: 04/29/25 Admission Diagnosis Admission Diagnosis: 1. Hypertensive Urgency 2. Acute on Chronic Hyponatremia Discharge Diagnosis Discharge Diagnosis: 1. Hypertensive Urgency - holding HCTZ due to hyponatremia, resume home medications and will make adjustments prn, hydralazine 10 mg Q6H prn for SBP>170 and DBP>100 2. Acute on Chronic Hyponatremia - osmolalities obtained, baseline 130-132 per chart, hold HCTZ, NS@50mL/hr due to risk of overload, will repeat BMP Q4H and reassess if need to start 3%, seizure precautions 3. COPD - not in exacerbation, continue home medications 4. GERD - chronic, continue home medications 5. Chronic pain - continue home medications Hospital Provider Hospital Provider: ALPHONSO MENENDEZ, [facility] Primary Care Physician Primary Care Physician: JOSE CHANDRA APRN Summary of History and Physical Summary of History and Physical: 74 yo female with pmh of chronic hyponatremia, COPD, HTN, chronic pain, and GERD presented to the ER with complaints of headache and high blood pressure. States SBP has been running in 200s intermittently since Monday and she has not felt well. Took 2 of her losartan/HCTZ on monday and monday and has continued to feel worse. BP improved mildly but then came back up into the 230s today. Denies any vision changes, chest pain, sob, or other symptoms. Does report dizziness/lightheadedness upon standing. Denies any vomiting or diarrhea. Found to have sodium of 122 and BP was 158/100 on arrival. Per ER provider systolic was up into the 180s-190s. She was given compazine, toradol, magnesium, clonidine, and 1L of NS. Repeat BMP completed and sodium was unchanged. Admitted to med/surg observation. Hospital Course Subjective: During stay, patient initially received NS@50mL/hr due to hypertensive urgency and risk of overload. Following repeat BMP after 4 hours, sodium minimally improved. 3% saline was then started. Sodium has slowly trended up and is now 129.3 at discharge. Per chart review, patient chronically runs anywhere from 130-132. Osmolalities obtained. Stopped losartan/HCTZ due to hyponatremia. Started on losartan at same 100 mg dose. BP has remained controlled. Patient's symptoms are resolved and was requesting discharge this am prior to sodium returning to near normal limits. Discussed extensively with patient possible effects of hyponatremia and risk of discharging prior to level being corrected. Came to agreement to discharge this evening/tonight when sodium was near normal. Patient is still feeling well at this time and requesting discharge. Sent home with AM dose of losartan as well as new prescription. Stopped potassium since patient is no longer taking hctz and potassium component in losartan. Instructed patient to contact PCP for repeat labs to be completed prior to follow-up appointment following medication changes today. Appearance: Pleasant, No Apparent Distress and Alert HEENT: MMM, Supple and No JVD CVS: No Murmur, No Rubs and No Gallop Abdomen: Soft, Non-Tender and No Distention Respiratory: No Dyspnea Extremities: No Edema Vital Signs: Most Recent Vital Signs Temperature 97.9 F 04/29/25 14:00 Temperature Source Temporal Artery Scan 04/29/25 14:00 Temperature Source Infrared 04/28/25 08:48 Pulse Rate 74 04/29/25 17:56 Respiratory Rate 18 04/29/25 17:56 Blood Pressure 151/60 H 04/29/25 17:56 Blood Pressure Mean 90 04/29/25 17:56 Blood Pressure Left Arm 147/76 04/28/25 15:53 Blood Pressure Location Right Arm 04/29/25 17:56 Blood Pressure Position Supine 04/29/25 17:56 O2 Sat by Pulse Oximetry 98 04/29/25 17:56 Oxygen Delivery Method Room Air 04/29/25 20:00 Height 5 ft 04/28/25 15:53 Weight 59.1 kg 04/28/25 15:53 Telemetry Type Bedside Monitor 04/29/25 19:00 Telemetry Monitoring Continues 04/29/25 19:00 Telemetry Heart Rate 79 04/29/25 19:00 Telemetry SPO2 98 04/29/25 19:00 EKG GA Interval 0.16 04/29/25 19:00 EKG QRS Interval 0.07 04/29/25 19:00 Telemetry Strip Reading SR 04/29/25 19:00 Imaging: EXAM: SINGLE-VIEW CHEST HISTORY: Chest pain COMPARISON: Single-view chest 03/05/2022 FINDINGS: / impression: The cardiomediastinal silhouette is stable.. There are benign granulomatous changes. Patchy density noted at the right lung base. There is no pleural effusion. Fusion changes lower cervical spine Lab Results Last 24 Hours: 04/29/25 04/29/25 04/29/25 20:05 16:00 12:18 WBC RBC Hgb Hct MCV MCH MCHC RDW Coeff of Wendi Plt Count Immature Gran % (Auto) Neut % (Auto) Lymph % (Auto) [place] % (Auto) Eos % (Auto) Baso % (Auto) Neut # (Auto) Lymph # (Auto) [place] # (Auto) Eos # (Auto) Baso # (Auto) Immature Gran # (Auto) Sodium 129.3 L 128.9 L 127.2 L Potassium 4.39 4.14 4.05 Chloride 100.3 97.0 L 96.4 L Carbon Dioxide 23.0 26.6 27.3 Anion Gap 10.39 9.44 7.55 BUN 11.1 9.0 8.4 Creatinine 0.46 L 0.55 L 0.48 L Estimated GFR (MDRD) 133.00 108.00 127.00 BUN/Creatinine Ratio 24.13 16.36 17.50 Glucose 99.6 83.5 97.0 Calcium 9.14 8.86 9.08 Total Bilirubin AST ALT Alkaline Phosphatase Total Protein Albumin Globulin Albumin/Globulin Ratio Ur Random Sodium 04/29/25 04/28/25 04/28/25 05:24 20:29 09:45 WBC 7.21 RBC 3.98 L Hgb 12.3 Hct 34.8 L MCV 87.4 MCH 30.9 MCHC 35.3 RDW Coeff of Wendi 12.7 Plt Count 290 Immature Gran % (Auto) 0.3 Neut % (Auto) 64.3 Lymph % (Auto) 25.5 [place] % (Auto) 9.2 Eos % (Auto) 0.6 Baso % (Auto) 0.1 Neut # (Auto) 4.6 Lymph # (Auto) 1.8 [place] # (Auto) 0.7 Eos # (Auto) 0.0 Baso # (Auto) 0.0 Immature Gran # (Auto) 0.0 Sodium 125.6 L 123.3 L Potassium 3.35 L 3.42 L Chloride 93.9 L 91.4 L Carbon Dioxide 27.2 26.4 Anion Gap 7.85 8.92 BUN 8.7 12.0 Creatinine 0.48 L 0.57 L Estimated GFR (MDRD) 127.00 104.00 BUN/Creatinine Ratio 18.12 21.05 Glucose 94.4 D 148.4 H Calcium 8.74 8.73 Total Bilirubin 0.67 AST 28.1 ALT 15.7 Alkaline Phosphatase 37.8 L Total Protein 6.36 Albumin 3.82 Globulin 2.54 Albumin/Globulin Ratio 1.50 Ur Random Sodium 94 Discharge Instructions Discharge Planning: Discharge Planning > 40 minutes If patient is discharged with left ventricular systolic dysfunction: na Discharged with a beta thomas? [] If no, why not? [] Discharged with an cammy/arb? [] If no, why not? [] Discharge Medications: Medications at Discharge (Home Meds & RX) mecobalamin (vitamin B12) 1,000 mcg chewable tablet (B12 Active) 1,000 mcg PO QDAY 01/27/23 docusate sodium 100 mg capsule (Stool Softener) 100 mg PO Q OTHER DAY 07/06/23 blood sugar diagnostic (Blood Glucose Test strips) #100 ea 10/19/23 blood-glucose meter #1 ea 10/19/23 lancets 28 gauge (Comfort EZ Lancets) #100 ea 10/19/23 ascorbate calcium (vitamin C) 500 mg tablet 500 mg PO QDAY #90 tabs 04/29/24 budesonide 160 mcg-glycopyr 9 mcg-formot 4.8 mcg/actuation HFA inhaler (Breztri Aerosphere) 2 inh inhalation BID #10.7 grams 05/09/24 fluticasone propionate 50 mcg/actuation nasal spray,suspension 2 spray intranasal DAILY PRN Nasal Congestion #16 grams 05/09/24 zolpidem 5 mg tablet (Ambien) 5 mg PO QHS PRN insomnia #7 tabs 07/01/24 pantoprazole 40 mg tablet,delayed release (Protonix) 40 mg PO BID #180 tabs 08/21/24 epinephrine 0.3 mg/0.3 mL injection, auto-injector (EpiPen 2-Jacitno) 0.3 mg (0.3 mL) IM Q5-15M PRN anaphylaxis #2 ea 01/20/25 amlodipine 2.5 mg tablet 2.5 mg PO 2XD #180 tabs 01/27/25 naloxegol 25 mg tablet (Movantik) 25 mg PO DAILY #30 tabs 02/26/25 ergocalciferol (vitamin D2) 1,250 mcg (50,000 unit) capsule (Vitamin D2) 1,250 mcg PO WEEKLY #12 caps 03/11/25 ondansetron 4 mg disintegrating tablet 4 mg PO Q6H PRN nausea and vomiting #15 tabs 03/11/25 carisoprodol 350 mg tablet (Soma) 350 mg PO TID PRN Spasms #90 tabs 03/25/25 escitalopram oxalate 10 mg tablet 10 mg PO DAILY #90 tabs 03/25/25 oxycodone 10 mg tablet 10 mg PO Q4H #180 tabs 04/02/25 albuterol sulfate 90 mcg/actuation aerosol inhaler 1 inh inhalation Q2-6H PRN bronchospasm 04/28/25 alprazolam 0.5 mg tablet (Xanax) 0.5 mg PO QDAY PRN anxiety 04/28/25 oxybutynin chloride 10 mg tablet,extended release 24 hr 10 mg PO QDAY PRN increased urination 04/28/25 alprazolam 0.5 mg tablet 0.5 mg PO DAILY #30 tabs 04/29/25 losartan 100 mg tablet 100 mg PO DAILY #30 tabs 04/29/25 Discharge Plan Discharge Discharge Orders: Discharge Patient (ONCE); Ordered 04/29/25 Ordered By: TRIP RIVAS Activity Restrictions/Additional Instructions: Diagnosis: Hyponatremia Diet: Regular Activity as tolerated Medications: Bynum drugs #2 * Stop taking losartan/HCTZ and potassium * Start taking losartan potassium 100 mg daily Contact PCP to have repeat labwork done prior to your appointment on Monday to monitor your sodium and potassium levels with the medication adjustments. Discuss with your provider prior to taking more medication than you are prescribed to avoid adverse effects. Instructions: Hyponatremia (GEN) Patient Disposition: HOME SELF-CARE Prescriptions: New alprazolam 0.5 mg Tablet 0.5 mg PO DAILY Qty: 30 0RF losartan 100 mg Tablet 100 mg PO DAILY Qty: 30 0RF Continued (DME) blood-glucose meter Kit See Rx Instructions .ROUTE Qty: 1 0RF Rx Instructions: As directed E11.9 DM2 TEST ONE TIME DAILY (DME) Blood Glucose Test Strip See Rx Instructions .ROUTE Qty: 100 5RF Rx Instructions: As directed E11.9 TEST ONE TIME DAILY (DME) lancets [Comfort EZ Lancets] 28 gauge misc See Rx Instructions .ROUTE Qty: 100 5RF Rx Instructions: As directed E11.9 TEST ONE TIME DAILY ascorbate calcium (vitamin C) 500 mg tablet 500 mg PO QDAY Qty: 90 0RF zolpidem [Ambien] 5 mg tablet 5 mg PO QHS PRN (Reason: insomnia) Qty: 7 1RF epinephrine [EpiPen 2-Jacinto] 0.3 mg/0.3 mL auto-injector 0.3 mg IM Q5-15M PRN (Reason: anaphylaxis) Qty: 2 0RF Rx Instructions: do not exceed 3 doses per episode amlodipine 2.5 mg tablet 2.5 mg PO 2XD Qty: 180 1RF Movantik 25 mg tablet 25 mg PO DAILY Qty: 30 2RF carisoprodol [Soma] 350 mg tablet 350 mg PO TID PRN (Reason: Spasms) Qty: 90 0RF escitalopram oxalate 10 mg tablet 10 mg PO DAILY Qty: 90 1RF oxycodone 10 mg tablet 10 mg PO Q4H Qty: 180 0RF oxybutynin chloride 10 mg tablet extended release 24hr 10 mg PO QDAY PRN (Reason: increased urination) alprazolam [Xanax] 0.5 mg tablet 0.5 mg PO QDAY PRN (Reason: anxiety) albuterol sulfate 90 mcg/actuation HFA aerosol inhaler 1 inh inhalation Q2-6H PRN (Reason: bronchospasm) fluticasone propionate 50 mcg/actuation spray,suspension 2 spray intranasal DAILY PRN (Reason: Nasal Congestion) Qty: 16 5RF Breztri Aerosphere 160-9-4.8 mcg/actuation HFA aerosol inhaler 2 inh inhalation BID Qty: 10.7 3RF mecobalamin (vitamin B12) [B12 Active] 1,000 mcg tablet,chewable 1,000 mcg PO QDAY docusate sodium [Stool Softener] 100 mg capsule 100 mg PO Q OTHER DAY pantoprazole [Protonix] 40 mg tablet,delayed release (DR/EC) 40 mg PO BID Qty: 180 1RF ergocalciferol (vitamin D2) [Vitamin D2] 1,250 mcg (50,000 unit) capsule 1,250 mcg PO WEEKLY Qty: 12 1RF ondansetron 4 mg tablet,disintegrating 4 mg PO Q6H PRN (Reason: nausea and vomiting) Qty: 15 1RF Discontinued potassium chloride 20 mEq tablet extended release 20 meq PO BID Qty: 10 0RF losartan-hydrochlorothiazide 100-12.5 mg tablet 1 tab PO DAILY Qty: 90 1RF Did you review [place] [employer]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
[2025-04-30] MEDS ORDERED: COLACE PO SCH (09:00)
== END 2025-04-29 21:24 | disposition home or self-care (01) ==
LOC: SCU 08:40 → ED 08:40 → SCU 15:44
PROVIDERS: ADMIT Hospitalist; ATTEND Nurse Practitioner Family
DX: Z51.81 Encounter for therapeutic drug level monitoring; J44.9 Chronic obstructive pulmonary disease, unspecified; G89.29 Other chronic pain; E87.1 Hypo-osmolality and hyponatremia; I10 Essential (primary) hypertension; R51.9 Headache, unspecified; K21.9 Gastro-esophageal reflux disease without esophagitis; Z79.899 Other long term (current) drug therapy; I16.0 Hypertensive urgency